=== PATIENT | male | born 1940 | race African-American/Black ===

== ENCOUNTER 2018-12-22 08:15 | Outpatient (CLI) | payer MEDICARE ==
[2018-12-22] MEDS ORDERED: XYLOCAINE TOPICAL 4% TP ONE (09:00)
== END 2018-12-22 08:16 | disposition home or self-care (01) ==
LOC: WOUND 08:15
PROVIDERS: ATTEND Surgery
DX: S61.412A Laceration without foreign body of left hand, initial encounter (principal); E11.22 Type 2 diabetes mellitus with diabetic chronic kidney disease; I12.9 Hypertensive chronic kidney disease with stage 1 through stage 4 chronic kidney disease, or unspecified chronic kidney disease; N18.9 Chronic kidney disease, unspecified; E11.42 Type 2 diabetes mellitus with diabetic polyneuropathy; K21.9 Gastro-esophageal reflux disease without esophagitis; E78.00 Pure hypercholesterolemia, unspecified; E78.5 Hyperlipidemia, unspecified; M10.9 Gout, unspecified; Z87.891 Personal history of nicotine dependence; X58.XXXA Exposure to other specified factors, initial encounter; Y93.89 Activity, other specified; Y92.89 Other specified places as the place of occurrence of the external cause; Y99.8 Other external cause status
CPT/HCPCS: 99205; 99215; G0463

== ENCOUNTER 2018-12-27 10:31 | Outpatient (CLI) | payer MEDICARE ==
[2018-12-27] MEDS ORDERED: XYLOCAINE TOPICAL 4% TP ONE (11:00)
== END 2018-12-27 10:32 | disposition home or self-care (01) ==
LOC: WOUND 10:31
PROVIDERS: ATTEND Surgery
DX: S61.402D Unspecified open wound of left hand, subsequent encounter (principal); E11.42 Type 2 diabetes mellitus with diabetic polyneuropathy; K21.9 Gastro-esophageal reflux disease without esophagitis; E78.00 Pure hypercholesterolemia, unspecified; E78.5 Hyperlipidemia, unspecified; I12.9 Hypertensive chronic kidney disease with stage 1 through stage 4 chronic kidney disease, or unspecified chronic kidney disease; N18.9 Chronic kidney disease, unspecified; M10.9 Gout, unspecified; Z87.891 Personal history of nicotine dependence; X58.XXXD Exposure to other specified factors, subsequent encounter

== ENCOUNTER 2019-01-03 09:14 | Outpatient (CLI) | payer MEDICARE | END 2019-01-03 09:15 | disposition home or self-care (01) | LOC: WOUND 09:14 | PROVIDERS: ATTEND Surgery | DX: S61.402D Unspecified open wound of left hand, subsequent encounter (principal); E11.42 Type 2 diabetes mellitus with diabetic polyneuropathy; K21.9 Gastro-esophageal reflux disease without esophagitis; E78.00 Pure hypercholesterolemia, unspecified; E78.5 Hyperlipidemia, unspecified; I12.9 Hypertensive chronic kidney disease with stage 1 through stage 4 chronic kidney disease, or unspecified chronic kidney disease; N18.9 Chronic kidney disease, unspecified; M10.9 Gout, unspecified; Z87.891 Personal history of nicotine dependence; X58.XXXD Exposure to other specified factors, subsequent encounter | CPT/HCPCS: 99213; G0463 ==

== ENCOUNTER 2020-02-26 13:48 | Emergency (ER) | payer MEDICARE, OTHER ==
[2020-02-26 13:57] VITALS: BP 120/52
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
[2020-02-26 15:42] LABS: Basophils # (Auto) 0.1 K/mm3 (0.0-0.1); Eosinophils # (Auto) 0.5 K/mm3 (0.0-0.4); Eosinophils % (Auto) 6.4 % (0.0-4.3); Hematocrit 44.4 % (35.5-45.6); Hemoglobin 14.8 gm/dl (11.8-15.2); Lymphocytes # (Auto) 2.4 K/mm3 (1.2-5.4); Lymphocytes % (Auto) 27.7 % (13.4-35.0); Mean Corpuscular HGB Conc 33 % (32-34); Mean Corpuscular Volume 96 fl (84-94); Monocytes # (Auto) 0.6 K/mm3 (0.0-0.8); Monocytes % (Auto) 6.5 % (0.0-7.3); Platelet Count 219 K/mm3 (140-440); Red Blood Count 4.61 M/mm3 (3.65-5.03); Red Cell Distribution Width 13.1 % (13.2-15.2)
[2020-02-26 15:51] LABS: INR 0.89 (0.87-1.13)
[2020-02-26 15:52] LABS: Partial Thromboplastin Time 24.3 Sec. (24.2-36.6)
[2020-02-26 16:05] LABS: Albumin 4.3 g/dL (3.9-5); Calcium 9.2 mg/dL (8.4-10.2)
[2020-02-26] MEDS ORDERED: SODIUM CHLORIDE 0.9% 1000 ML 1,000 ML IV ONE ×2 (19:48→19:59)
[2020-02-26] MEDS ORDERED: ALBUTEROL 2.5 MG/3 ML NEBU IH ONE (19:58)
[2020-02-26] MEDS ORDERED: INSULIN REGULAR, HUMAN 100 UNIT/ML 3ML VIAL IV ONE ×2 (20:00→21:59)
[2020-02-26] MEDS ORDERED: DEXTROSE 50% IN WATER (25GM) 50 ML SYRINGE IV ONE (20:00)
[2020-02-26] MEDS ORDERED: DEXTROSE 50% IN WATER (25GM) 50 ML VIAL IV ONE (20:00)
[2020-02-26] MEDS ORDERED: MORPHINE 4 MG/1 ML INJ IV ONE (20:56)
[2020-02-26] MEDS ORDERED: ONDANSETRON 4 MG/2 ML INJ IV ONE (20:56)
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
[2020-02-26] MEDS ORDERED: INSULIN REGULAR, HUMAN 100 UNITS/1 ML IV ONE (21:59)
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
[2020-02-26] MEDS ORDERED: SODIUM POLYSTYRENE 15 GM/60 ML ORAL LIQD PO ONE (22:36)
[2020-02-26] MEDS ORDERED: FUROSEMIDE 20 MG/2 ML INJ IV ONE (22:36)
[2020-02-27 02:37] LABS: Calcium 8.5 mg/dL (8.4-10.2)
[2020-02-27] MEDS ORDERED: INSULIN REGULAR, HUMAN 100 UNIT/ML 3ML VIAL IV ONE (21:54)
== END 2020-02-27 03:05 | disposition home or self-care (01) ==
LOC: ED 13:48
DX: S20.219A Contusion of unspecified front wall of thorax, initial encounter (principal); I10 Essential (primary) hypertension; E11.9 Type 2 diabetes mellitus without complications; Z79.899 Other long term (current) drug therapy; Z88.6 Allergy status to analgesic agent; N28.9 Disorder of kidney and ureter, unspecified; E87.5 Hyperkalemia; E86.0 Dehydration; X58.XXXA Exposure to other specified factors, initial encounter; Y93.89 Activity, other specified; Y92.89 Other specified places as the place of occurrence of the external cause; Y99.8 Other external cause status
CPT/HCPCS: 36415; 71260; 74177; 80048; 80053; 85025; 85610; 85730; 94644; 96361; 96374; 96375; 99284; J1940; J2270; J2405; J7030; Q9967; J1815

== ENCOUNTER 2020-06-25 08:36 | Outpatient (CLI) | payer MEDICARE ==
--- NOTE | 2020-06-25 10:19 | Cat Scan Report ---
CT ABDOMEN AND PELVIS WITHOUT CONTRAST HISTORY: MALIGNANT NEOPLASM OF PROSTATE COMPARISON: 02/26/2020 TECHNIQUE: Axial CT images were obtained through the abdomen and pelvis without IV contrast. Sagittal and coronal reformatted images. All CT scans at this location are performed using CT dose reduction for ALARA by means of automated exposure control. FINDINGS: CT ABDOMEN: Lung Bases: Clear. Liver: No significant abnormality. Biliary: The gallbladder appears partially contracted with stones and sludge. Spleen: No significant abnormality. Unenlarged. 1.4 cm cyst in the inferior spleen is unchanged. Pancreas: No significant abnormality. Adrenals: No significant abnormality. Kidneys: There are a few punctate calyceal stones in both kidneys. No ureteral stones or hydronephros is. No focal renal lesion. Lymphatics: There is an 8 mm aortocaval lymph node on image 67, series 2. This is not pathologically enlarged by CT standards although it has increased in size from 5 mm on the previous exam. No other s uspicious lymph nodes are detected. Vasculature: Mild to moderate diffuse aortic and iliac calcifications. No aneurysm. Bowel/Peritoneum: No significant abnormality. No free air. No free fluid. Normal appendix. CT PELVIS: : The prostate gland remains mildly enlarged. The bladder is unremarkable. Osseous Structures: Mild osteopenia. Mild thoracolumbar spondylosis. No suspicious bony lesion is det ected. Additional Findings: None IMPRESSION: Mildly enlarged prostate gland. There is a questionable retroperitoneal lymph node in the aortocaval chain as described. Although this lymph node is not pathologically enlarged by CT measurement standar ds it has increased in size since the CT performed 02/26/2020. Early retroperitoneal lymph node involve ment cannot be excluded. No bony lesions are detected. Cholelithiasis. Punctate bilateral renal stones. Signer Name: Jamie Butler Jr, MD Signed: 06/25/2020 10:14 AM Workstation Name: [id number]
--- NOTE | 2020-06-25 15:17 | Nuclear Medicine Report ---
CLINICAL DATA: MALIGNANT NEOPLASM OF PROSTATE TECHNICAL DATA: Following intravenous injection of 26.3 millicuries of 99m technetium MDP, three-hour delayed anterio r and posterior whole body skeletal phase images were obtained. FINDINGS: CT scan abdomen and pelvis compared to day stay There is normal distribution of the radiopharmaceutical throughout the skeleton. There is no evidence of focal increased or decreased activity. There is normal renal and bladder activity. Increased uptake of the radiopharmaceutical identified in both shoulders consistent with degenerative changes. Also noted focal area of increased radiopharmaceutical overlying the right elbow questionab le injection site IMPRESSION: No convincing evidence of metastatic disease. Please see comments Signer Name: Alexandre Recinos MD Signed: 06/25/2020 3:12 PM Workstation Name: [id number]
== END 2020-06-25 08:37 | disposition home or self-care (01) ==
LOC: NM 08:36
PROVIDERS: ATTEND Urology
DX: C61 Malignant neoplasm of prostate (principal); N40.0 Benign prostatic hyperplasia without lower urinary tract symptoms; N20.0 Calculus of kidney; K80.20 Calculus of gallbladder without cholecystitis without obstruction; D73.4 Cyst of spleen; K82.8 Other specified diseases of gallbladder; I70.0 Atherosclerosis of aorta; I70.8 Atherosclerosis of other arteries; M85.80 Other specified disorders of bone density and structure, unspecified site; M47.815 Spondylosis without myelopathy or radiculopathy, thoracolumbar region
CPT/HCPCS: 74176; 78306; A9503

== ENCOUNTER 2020-11-27 10:41 | Inpatient (IN) | payer MEDICARE ==
[2020-11-27] MEDS ORDERED: SODIUM CHLORIDE 0.9% 1000 ML 1,000 ML IV ONE (11:50)
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
[2020-11-27 12:00] LABS: Bilirubin,Urine NEG (Negative); Blood,Urine SM (Negative); Color,Urine Straw (Yellow); Mucus,Urine FEW /HPF; Protein,Urine <15 mg/dL mg/dL (Negative); Urobilinogen,Urine < 2.0 mg/dL (<2.0); WBC,Urine < 1.0 /HPF (0.0-6.0)
--- NOTE | 2020-11-27 12:32 | XRay Report ---
CHEST 1 VIEW 11/27/2020 11:24 AM INDICATION / CLINICAL INFORMATION: weakness. COMPARISON: None available. FINDINGS: SUPPORT DEVICES: None. HEART / MEDIASTINUM: No significant abnormality. LUNGS / PLEURA: No significant pulmonary or pleural abnormality. No pneumothorax. ADDITIONAL FINDINGS: No significant additional findings. IMPRESSION: 1. No acute findings. Signer Name: Lexa Ontiveros MD Signed: 11/27/2020 12:28 PM Workstation Name: [id number]
[2020-11-27 13:59] LABS: Basophils % (Auto) 0.4 % (0.0-1.8); Eosinophils # (Auto) 0.1 K/mm3 (0.0-0.4); Eosinophils % (Auto) 0.7 % (0.0-4.3); Lymphocytes # (Auto) 1.3 K/mm3 (1.2-5.4); Lymphocytes % (Auto) 11.1 % (13.4-35.0); Mean Corpuscular HGB Conc 32 % (32-34); Mean Corpuscular Volume 100 fl (84-94); Monocytes # (Auto) 0.5 K/mm3 (0.0-0.8); Monocytes % (Auto) 4.1 % (0.0-7.3); Platelet Count 216 K/mm3 (140-440); Red Cell Distribution Width 14.2 % (13.2-15.2)
[2020-11-27 14:00] LABS: Hematocrit 16.1 % (35.5-45.6); Hemoglobin 5.2 gm/dl (11.8-15.2)
[2020-11-27 14:17] LABS: INR 1.19 (0.87-1.13); Partial Thromboplastin Time 28.6 Sec. (24.2-36.6)
[2020-11-27] MEDS ORDERED: SODIUM CHLORIDE 0.9% 500 ML 500 ML IV ONE (14:44)
[2020-11-27 15:16] LABS: Alanine Aminotransferase 15 units/L (7-56); Albumin 2.7 g/dL (3.9-5); BUN/Creatinine Ratio 58; Blood Urea Nitrogen 93 mg/dL (9-20); Hemolysis Index 7
[2020-11-27 15:21] LABS: Bilirubin,Direct < 0.2 mg/dL (0-0.2)
[2020-11-27] MEDS ORDERED: INSULIN REGULAR, HUMAN 100 UNITS/1 ML IV ONE (15:27)
[2020-11-27] MEDS ORDERED: DEXTROSE 50% IN WATER (25GM) 50 ML SYRINGE IV ONE (15:28)
[2020-11-27] MEDS ORDERED: CALCIUM CHLORIDE 1,000 MG/10 ML SYRINGE IV ONE (15:28)
[2020-11-27] MEDS ORDERED: SODIUM POLYSTYRENE 15 GM/60 ML ORAL LIQD PO ONE (15:28)
[2020-11-27] MEDS ORDERED: ALBUTEROL 2.5 MG/3 ML NEBU IH ONE (15:28)
--- NOTE | 2020-11-27 16:47 | Consultation ---
History of Present Illness - Reason for Consult Consult date: 11/27/20 - History of Present Illness This is a 80 year old male who presented to the E.R via EMS for evaluation of weakness, poor appetite and frequent falls. On evaluation patient was noted to be with Melena, Hypotensive, Anemic with HGB of 5.2 and Hyperkalemic with a potassium level of 6.3. Patient has history of Hypertension, DM and CKD stage 3. States he sees a global professional in [place]. We are being consulted for manageme nt of this patient's ARF on CKD and Hyperkalemia. Past History Past Medical History: anemia, diabetes, hypertension, renal failure Past Surgical History: No surgical history Social history: no significant social history Family history: no significant family history Medications and Allergies Allergies Allergy/AdvReac Type Severity Reaction Status Date / Time ibuprofen [From Advil] Allergy Mild Dizziness Verified 12/22/18 08:48 Home Medications Medication Instructions Recorded Confirmed Last Taken Type Aspirin [Adult Aspirin] 81 mg PO DAILY 10/17/19 10/23/19 10/17/19 09:00 History Insulin Detemir [Levemir VIAL] 0 unit SQ QHS 10/17/19 10/23/19 10/22/19 21:00 History Lisinopril [Zestril] 5 mg PO DAILY 10/17/19 10/23/19 10/22/19 18:00 History Lispro Insulin [HumaLOG] 0 unit SQ TID 10/17/19 10/23/19 10/22/19 18:00 History Lovastatin [Altoprev] 20 mg PO DAILY 10/17/19 10/23/19 10/22/19 18:00 History metFORMIN [Glucophage] 500 mg PO QDAY 10/17/19 10/23/19 10/22/19 09:00 History Acetaminophen/Codeine [Tylenol 1 tab PO Q6H PRN #15 tab 02/27/20 Unknown Rx /Codeine # 3 tab] Active Meds: Active Medications Pantoprazole Sodium 80 mg/ (Sodium Chloride) 100 mls @ 10 mls/hr IV DIRECT JANE Review of Systems Constitutional: fatigue, weakness, poor appetite, no weight loss, no weight gain, no fever, no chills Ears, nose, mouth and throat: no ear pain, no ear discharge, no tinnitis, no decreased hearing, no nose pain, no nasal congestion Cardiovascular: no chest pain, no orthopnea, no palpitations, no rapid/irregular heart beat, no edema, no lightheadedness, no shortness of breath Respiratory: no cough with sputum, no excessive sputum, no hemoptysis, no shortness of breath, no dyspnea on exertion Gastrointestinal: melena, no abdominal pain, no nausea, no vomiting, no diarrhea Genitourinary Male: no hematuria, no flank pain, no discharge, no urinary frequency Rectal: no pain, no incontinence, no bleeding Musculoskeletal: neck pain, no arm numbness/tingling, no shooting leg pain, no leg numbness/tingling, no redness of joints Integumentary: no rash, no pruritis, no redness, no sores, no wounds, no jaundice Neurological: weakness, no paralysis, no parathesias, no numbness, no tingling, no seizures Psychiatric: no anxiety, no memory loss, no change in sleep habits, no sleep disturbances, no insomnia, no hypersomnia, no change in appetite Endocrine: no cold intolerance, no heat intolerance, no polyphagia, no excessive thirst, no polydipsia Exam - Vital Signs Vital signs: Vital Signs Temp Pulse Resp BP Pulse Ox 97.7 F 102 H 23 119/39 95 11/27/20 10:43 11/27/20 10:43 11/27/20 10:43 11/27/20 10:43 11/27/20 10:43 - General Appearance General appearance: well-developed, appears stated age EENT: ATNC, PERRL, hearing intact, vision intact Neck: Present: neck supple, trachea midline Respiratory: Decreased Breath Sounds Heart: S1S2 Gastrointestinal: Present: normoactive bowel sounds Integumentary: warm and dry Neurologic: other (Awake and alert) Musculoskeletal: Present: other (No edema) Results - Lab Results 11/27/20 13:06 11/27/20 13:06 Most recent lab results Calcium 8.0 mg/dL (8.4-10.2) L 11/27/20 13:06 Assessment and Plan Assessment: (Principal Problem) GI Bleed Acute Renal Failure on CKD Anemia Hyperkalemia Hypotension Diabetes Mellitus Acidosis Plan: -Renal labs reviewed. Serum Creatinine 1.6. Baseline 1.4-1.9 -Obtain renal US -Obtain urine lytes -Hyperkalemia- received Kayexlate and anti-potassium coctail -Correction of glucose levels to help correct Acidosis -Monitor BMP daily and as needed -Anemia-receiving PRBC transfusions -CXR-No acute findings -NS@75 ml/hr -Renally dose medications -Obtain daily weights -Strict I/O's daily -Continue to monitor
--- NOTE | 2020-11-27 16:54 | Gastroenterology Consultation ---
History of Present Illness - Reason for Consult Consult date: 11/27/20 Melena Requesting physician: JOHAN ORELLANA - History of Present Illness The patient is an 80 yo male found down at home during a welfare check. He was brought to the ER with a glucose of >350 and hct of 14 (baseline 42 several months ago). He was initially nearly obtunded, but can now verbalize after fluid resuscitation. He denies abdominal pain, or N/V (and nurse has not witnessed). He has had melena in the ER. He is on daily ASA, but unclear if on other NSAIDs (non listed). He does have a CT in June that shows a retroperitoneal LN, but no other significant findings. He is not on a PPI per old med lists. Past History Past Medical History: cancer (Prostate CA), diabetes, hypertension, hyperlipidemia Past Surgical History: Other (Prostate Bx) Social history: Lives alone. denies: smoking, alcohol abuse Family history: no significant family history Medications and Allergies Allergies Allergy/AdvReac Type Severity Reaction Status Date / Time ibuprofen [From Advil] Allergy Mild Dizziness Verified 12/22/18 08:48 Home Medications Medication Instructions Recorded Confirmed Last Taken Type Aspirin [Adult Aspirin] 81 mg PO DAILY 10/17/19 10/23/19 10/17/19 09:00 History Insulin Detemir [Levemir VIAL] 0 unit SQ QHS 10/17/19 10/23/19 10/22/19 21:00 History Lisinopril [Zestril] 5 mg PO DAILY 10/17/19 10/23/19 10/22/19 18:00 History Lispro Insulin [HumaLOG] 0 unit SQ TID 10/17/19 10/23/19 10/22/19 18:00 History Lovastatin [Altoprev] 20 mg PO DAILY 10/17/19 10/23/19 10/22/19 18:00 History metFORMIN [Glucophage] 500 mg PO QDAY 10/17/19 10/23/19 10/22/19 09:00 History Acetaminophen/Codeine [Tylenol 1 tab PO Q6H PRN #15 tab 02/27/20 Unknown Rx /Codeine # 3 tab] Active Meds: Active Medications Pantoprazole Sodium 80 mg/ (Sodium Chloride) 100 mls @ 10 mls/hr IV DIRECT JANE I HAVE REVIEWED/RECONCILED MEDICATIONS Review of Systems - Review of Systems All systems: negative (as noted in the HPI.) Exam - Constitutional Vital Signs: Temp Pulse Resp BP Pulse Ox 98.4 F 99 H 17 99/47 98 11/27/20 15:40 11/27/20 15:40 11/27/20 15:40 11/27/20 15:40 11/27/20 15:40 General appearance: mild distress - EENT Eyes: PERRL, EOM intact ENT: hearing intact, clear oral mucosa - Neck Neck: supple, normal ROM - Respiratory Respiratory effort: normal Respiratory: bilateral: CTA - Cardiovascular Rhythm: regular Heart Sounds: Present: S1 & S2 Extremities: no ischemia, No edema - Gastrointestinal General gastrointestinal: Present: soft, non-tender, non-distended - Integumentary Integumentary: Present: clear, warm, dry, pale - Neurologic Neurological: oriented to person, oriented to place - Labs CBC & Chem 7: 11/27/20 13:06 11/27/20 13:06 Lab Results: Laboratory Results - last 24 hr 11/27/20 11/27/20 11/27/20 10:50 11:52 13:06 WBC 11.7 H RBC 1.60 L Hgb 5.2 L* Hct 16.1 L* MCV 100 H MCH 32 MCHC 32 RDW 14.2 Plt Count 216 Lymph % (Auto) 11.1 L [place] % (Auto) 4.1 Eos % (Auto) 0.7 Baso % (Auto) 0.4 Lymph # (Auto) 1.3 [place] # (Auto) 0.5 Eos # (Auto) 0.1 Baso # (Auto) 0.0 Seg Neutrophils % 83.7 H Seg Neutrophils # 9.8 H PT INR APTT Sodium Potassium Chloride Carbon Dioxide Anion Gap BUN Creatinine Estimated GFR BUN/Creatinine Ratio Glucose POC Glucose 345 H Ketones Quantitative Calcium Total Bilirubin Direct Bilirubin Indirect Bilirubin AST ALT Alkaline Phosphatase Troponin T Total Protein Albumin Albumin/Globulin Ratio Urine Color Straw Urine Turbidity Clear Urine pH 5.0 Ur Specific [place] 1.011 Urine Protein <15 mg/dl Urine Glucose (UA) >=500 Urine Ketones 20 Urine Blood Sm Urine Nitrite Neg Urine Bilirubin Neg Urine Urobilinogen < 2.0 Ur Leukocyte Esterase Neg Urine WBC (Auto) < 1.0 Urine RBC (Auto) 1.0 U Epithel Cells (Auto) < 1.0 Urine Mucus Few Blood Type Antibody Screen Crossmatch 11/27/20 11/27/20 11/27/20 13:06 13:06 13:10 WBC RBC Hgb Hct MCV MCH MCHC RDW Plt Count Lymph % (Auto) [place] % (Auto) Eos % (Auto) Baso % (Auto) Lymph # (Auto) [place] # (Auto) Eos # (Auto) Baso # (Auto) Seg Neutrophils % Seg Neutrophils # PT INR APTT Sodium 133 L Potassium 6.3 H* Chloride 104.5 Carbon Dioxide 11 L Anion Gap 24 BUN 93 H Creatinine 1.6 H Estimated GFR 42 BUN/Creatinine Ratio 58 Glucose 392 H POC Glucose Ketones Quantitative Negative Calcium 8.0 L Total Bilirubin 0.20 Direct Bilirubin < 0.2 Indirect Bilirubin 0.0 AST 15 ALT 15 Alkaline Phosphatase 42 Troponin T < 0.010 Total Protein 4.9 L Albumin 2.7 L Albumin/Globulin Ratio 1.2 Urine Color Urine Turbidity Urine pH Ur Specific [place] Urine Protein Urine Glucose (UA) Urine Ketones Urine Blood Urine Nitrite Urine Bilirubin Urine Urobilinogen Ur Leukocyte Esterase Urine WBC (Auto) Urine RBC (Auto) U Epithel Cells (Auto) Urine Mucus Blood Type B POSITIVE Antibody Screen Negative Crossmatch See Detail 11/27/20 13:47 WBC RBC Hgb Hct MCV MCH MCHC RDW Plt Count Lymph % (Auto) [place] % (Auto) Eos % (Auto) Baso % (Auto) Lymph # (Auto) [place] # (Auto) Eos # (Auto) Baso # (Auto) Seg Neutrophils % Seg Neutrophils # PT 15.1 H INR 1.19 H APTT 28.6 Sodium Potassium Chloride Carbon Dioxide Anion Gap BUN Creatinine Estimated GFR BUN/Creatinine Ratio Glucose POC Glucose Ketones Quantitative Calcium Total Bilirubin Direct Bilirubin Indirect Bilirubin AST ALT Alkaline Phosphatase Troponin T Total Protein Albumin Albumin/Globulin Ratio Urine Color Urine Turbidity Urine pH Ur Specific [place] Urine Protein Urine Glucose (UA) Urine Ketones Urine Blood Urine Nitrite Urine Bilirubin Urine Urobilinogen Ur Leukocyte Esterase Urine WBC (Auto) Urine RBC (Auto) U Epithel Cells (Auto) Urine Mucus Blood Type Antibody Screen Crossmatch Assessment and Plan 1. Melena - Suspect UGI bleed; based on labs/prior CT, unlikely to be varices - More likely dx is PUD or tumor - Will start protonix gtt - Transfuse 4 units (+/- depending on clinical response) - NPO status - Correct sugar/HERB with IV fluids/insulin - Upper endoscopy timing based on clinical stability
[2020-11-27] MEDS ORDERED: SODIUM CHLORIDE 0.9% 1000 ML 1,000 ML IV SCH (17:15)
[2020-11-27] MEDS: PANTOPRAZOLE 80 MG in SODIUM CHLORIDE 0.9% 100 ML IV SCH (19:33)
--- NOTE | 2020-11-27 19:33 | Cat Scan Report ---
CT CERVICAL SPINE WITHOUT CONTRAST INDICATION / CLINICAL INFORMATION: neck pain. TECHNIQUE: Axial CT images were obtained through the cervical spine. Sagittal and coronal reformatted images wer e produced. All CT scans at this location are performed using CT dose reduction for ALARA by means of automated exposure control. COMPARISON: None available. FINDINGS: ALIGNMENT: Loss of the normal cervical lordosis is noted. No additional abnormalities of alignment ar e identified. VERTEBRAE: No indication of fracture or bone destruction. DISC SPACES: Disc height is fairly well-maintained throughout. DEGENERATIVE CHANGES: Osteoarthritic changes are seen at the atlantoaxial junction between the anteri or arch of C1 and the odontoid process. Anterior osteophyte formation is noted at the C4-5 and C5-6 l evels. Facet arthritic changes are observed at the C3-4 and C4-5 levels bilaterally. Uncovertebral ar thritic changes are seen in the lower cervical region most pronounced at C5-6 and C6-7 levels. These degenerative changes contribute to multifocal neuroforaminal stenosis at the central spinal canal álvaro ears to be adequate in size. CRANIOCERVICAL JUNCTION:No significant abnormality. SPINAL CANAL: Central spinal canal is adequately maintained throughout. PARASPINAL SOFT TISSUES: No significant abnormality. LUNG APICES: No significant abnormality of visualized lungs. IMPRESSION: 1. Widespread cervical spondylosis with multifocal neuroforaminal narrowing. Signer Name: Az Ac MD Signed: 11/27/2020 7:28 PM Workstation Name: [id number]
--- NOTE | 2020-11-27 19:35 | Cat Scan Report ---
CT HEAD WITHOUT CONTRAST INDICATION / CLINICAL INFORMATION: dizziness. TECHNIQUE: All CT scans at this location are performed using CT dose reduction for ALARA by means of automated e xposure control. COMPARISON: None available. FINDINGS: HEMORRHAGE: No evidence of intracranial hemorrhage or extra-axial fluid collection. EXTRA-AXIAL SPACES: Cortical sulci and sylvian fissures are enlarged reflecting a degree of parenchym al volume loss which is within normal limits for the patient's age of 80 years. Basilar cisterns have an unremarkable appearance. VENTRICULAR SYSTEM: The third and lateral ventricles are enlarged reflecting presence of age related parenchymal volume loss. CEREBRAL PARENCHYMA: Periventricular and deep white matter lucency is observed. This is probably seco ndary to microvascular ischemic change. There is no indication of recent infarction. No areas of ence phalomalacia are identified. MIDLINE SHIFT OR HERNIATION: There is no mass effect. CEREBELLUM / BRAINSTEM: Brainstem has an unremarkable appearance. Age related cerebellar atrophy is n oted. MIDLINE STRUCTURES:Pituitary gland has an unremarkable appearance. No abnormalities are seen in the p ineal region. INTRACRANIAL VESSELS:Calcified atherosclerotic plaque is present along the course of the cavernous se gments of both internal carotid arteries. ORBITS: Status post bilateral cataract surgery. No additional abnormality. SOFT TISSUES of HEAD: No significant abnormality. CALVARIUM: Evaluation of bone windows reveals no abnormalities. PARANASAL SINUSES / MASTOID AIR CELLS: Subtotal opacification of the right maxillary sinus is noted. There is thickening of the power of the right maxillary sinus. These findings indicate a diagnosis of chronic sinusitis. Paranasal sinuses otherwise appear clear as do the mastoid air cells. ADDITIONAL FINDINGS: None. IMPRESSION: 1. Age-related involutional changes of atrophy and microvascular ischemic change. 2. No acute intracranial abnormality. 3. Chronic right maxillary sinusitis. Signer Name: Az Ac MD Signed: 11/27/2020 7:31 PM Workstation Name: [id number]
[2020-11-27 21:25] LABS: Creatinine,Urine 21.7 mg/dL (0.1-20.0); Protein/Creatinine Ratio,Urine 0.78
[2020-11-27] MEDS ORDERED: ONDANSETRON 4 MG/2 ML INJ IV PRN (22:41)
[2020-11-27] MEDS ORDERED: ACETAMINOPHEN 325 MG TAB PO PRN (22:41)
[2020-11-27] MEDS ORDERED: MORPHINE 2 MG/1 ML INJ IV PRN (22:41)
[2020-11-27] MEDS ORDERED: METOCLOPRAMIDE 10 MG/2 ML INJ IV PRN (22:41)
[2020-11-27] MEDS ORDERED: PROMETHAZINE 25 MG RECT SUPP PR PRN (22:41)
--- NOTE | 2020-11-27 22:41 | History and Physical Report ---
History of Present Illness Date of examination: 11/27/20 Date of admission: 11/27/20 15:46 Chief complaint: Black tarry stools and severe weakness for 3 days History of present illness: 61-year-old male with history of insulin-dependent diabetes, hypertension, prostate cancer and hyperlipidemia was called in for a welfare check by neighbor. When the EMS arrived her house was in an back condition and patient was hypotensive tachycardic and unable to walk. Accu-Cheks are in range of 500. Patient says that he had some black tarry stools for the last 3 days. Feels very weak and unable to walk. No fever. Compliance with medications not known. Lives alone. -- - Past Medical History Hx Hypertension: Yes (took antihypertensive last night) Hx Diabetes: Ye Hx Renal Disease: Yes (hyperkalemia (appears chronic based on outpatient labs in chart)) - Social History Smoking Status: Former Smoker surgical history and family history not available - Medications Home Medications: Home Medications Medication Instructions Recorded Confirmed Last Taken Type Aspirin [Adult Aspirin] 81 mg PO DAILY 10/17/19 10/23/19 10/17/19 09:00 History Insulin Detemir [Levemir VIAL] 0 unit SQ QHS 10/17/19 10/23/19 10/22/19 21:00 History Lisinopril [Zestril] 5 mg PO DAILY 10/17/19 10/23/19 10/22/19 18:00 History Lispro Insulin [HumaLOG] 0 unit SQ TID 10/17/19 10/23/19 10/22/19 18:00 History Lovastatin [Altoprev] 20 mg PO DAILY 10/17/19 10/23/19 10/22/19 18:00 History metFORMIN [Glucophage] 500 mg PO QDAY 10/17/19 10/23/19 10/22/19 09:00 History Acetaminophen/Codeine [Tylenol 1 tab PO Q6H PRN #15 tab 02/27/20 Unknown Rx /Codeine # 3 tab] Review of Systems ROS: Stated complaint: WEAKN,HIGH BLOOD SUGAR Other details as noted in HPI Comment: All other systems reviewed and negative Constitutional: denies: chills, fever Respiratory: denies: shortness of breath Cardiovascular: denies: chest pain Gastrointestinal: melena. denies: abdominal pain, vomiting Musculoskeletal: other (Patient reports neck pain) Neurological: other (She reports dizziness) Past History Past Medical History: anemia, diabetes, hypertension, renal failure Past Surgical History: No surgical history Social history: no significant social history Family history: no significant family history Medications and Allergies Allergies Allergy/AdvReac Type Severity Reaction Status Date / Time ibuprofen [From Advil] Allergy Mild Dizziness Verified 12/22/18 08:48 Home Medications Medication Instructions Recorded Confirmed Last Taken Type Aspirin [Adult Aspirin] 81 mg PO DAILY 10/17/19 10/23/19 10/17/19 09:00 History Insulin Detemir [Levemir VIAL] 0 unit SQ QHS 10/17/19 10/23/19 10/22/19 21:00 History Lisinopril [Zestril] 5 mg PO DAILY 10/17/19 10/23/19 10/22/19 18:00 History Lispro Insulin [HumaLOG] 0 unit SQ TID 10/17/19 10/23/19 10/22/19 18:00 History Lovastatin [Altoprev] 20 mg PO DAILY 10/17/19 10/23/19 10/22/19 18:00 History metFORMIN [Glucophage] 500 mg PO QDAY 10/17/19 10/23/19 10/22/19 09:00 History Acetaminophen/Codeine [Tylenol 1 tab PO Q6H PRN #15 tab 02/27/20 Unknown Rx /Codeine # 3 tab] Active Meds: Active Medications Pantoprazole Sodium 80 mg/ (Sodium Chloride) 100 mls @ 10 mls/hr IV DIRECT JANE Last Admin: 11/27/20 19:33 Dose: 8 mg/hr, 10 mls/hr Documented by: Sodium Chloride (Nacl 0.9% 1000 Ml) 1,000 mls @ 75 mls/hr IV DIRECT JANE Last Admin: 11/27/20 19:34 Dose: 75 mls/hr Documented by: Exam - Constitutional Vitals: Temp Pulse Resp BP Pulse Ox 97.9 F 110 H 16 107/57 100 11/27/20 20:00 11/27/20 22:01 11/27/20 22:01 11/27/20 22:00 11/27/20 22:01 General appearance: Present: no acute distress, well-nourished - EENT Eyes: Present: PERRL ENT: hearing intact, clear oral mucosa, other - Neck Neck: Present: supple, normal ROM - Respiratory Respiratory effort: normal Respiratory: bilateral: CTA - Cardiovascular Rhythm: regular (110) Heart Sounds: Present: S1 & S2. Absent: rub, click - Extremities Extremities: pulses symmetrical, No edema Peripheral Pulses: within normal limits - Abdominal General gastrointestinal: Present: soft, non-tender, non-distended, normal bowel sounds Male genitourinary: Present: normal - Rectal Rectal Exam: stool dark - Integumentary Integumentary: Present: clear, warm, dry - Musculoskeletal Musculoskeletal: gait normal, strength equal bilaterally - Psychiatric Psychiatric: appropriate mood/affect, intact judgment & insight - Neurologic Neurologic: CNII-XII intact, moves all extremities HEART Score - HEART Score History: Moderately suspicious Age: > 65 Risk factors: 1-2 risk factors Troponin: Troponin T < 0.010 ng/mL (0.00-0.029) 11/27/20 13:06 - Critical Actions Critical Actions: 4-6 pts:12-16.6% risk of adverse cardiac event. Should be admitted Results - Labs CBC & Chem 7: 11/27/20 22:51 11/27/20 22:34 Labs: Laboratory Last Values WBC 11.7 K/mm3 (4.5-11.0) H 11/27/20 13:06 RBC 1.60 M/mm3 (3.65-5.03) L 11/27/20 13:06 Hgb 5.2 gm/dl (11.8-15.2) L* 11/27/20 13:06 Hct 16.1 % (35.5-45.6) L* 11/27/20 13:06 MCV 100 fl (84-94) H 11/27/20 13:06 MCH 32 pg (28-32) 11/27/20 13:06 MCHC 32 % (32-34) 11/27/20 13:06 RDW 14.2 % (13.2-15.2) 11/27/20 13:06 Plt Count 216 K/mm3 (140-440) 11/27/20 13:06 Lymph % (Auto) 11.1 % (13.4-35.0) L 11/27/20 13:06 [place] % (Auto) 4.1 % (0.0-7.3) 11/27/20 13:06 Eos % (Auto) 0.7 % (0.0-4.3) 11/27/20 13:06 Baso % (Auto) 0.4 % (0.0-1.8) 11/27/20 13:06 Lymph # (Auto) 1.3 K/mm3 (1.2-5.4) 11/27/20 13:06 [place] # (Auto) 0.5 K/mm3 (0.0-0.8) 11/27/20 13:06 Eos # (Auto) 0.1 K/mm3 (0.0-0.4) 11/27/20 13:06 Baso # (Auto) 0.0 K/mm3 (0.0-0.1) 11/27/20 13:06 Seg Neutrophils % 83.7 % (40.0-70.0) H 11/27/20 13:06 Seg Neutrophils # 9.8 K/mm3 (1.8-7.7) H 11/27/20 13:06 PT 15.1 Sec. (12.2-14.9) H 11/27/20 13:47 INR 1.19 (0.87-1.13) H 11/27/20 13:47 APTT 28.6 Sec. (24.2-36.6) 11/27/20 13:47 Sodium 133 mmol/L (137-145) L 11/27/20 13:06 Potassium 6.3 mmol/L (3.6-5.0) H* 11/27/20 13:06 Chloride 104.5 mmol/L (98-107) 11/27/20 13:06 Carbon Dioxide 11 mmol/L (22-30) L 11/27/20 13:06 Anion Gap 24 mmol/L 11/27/20 13:06 BUN 93 mg/dL (9-20) H 11/27/20 13:06 Creatinine 1.6 mg/dL (0.8-1.3) H 11/27/20 13:06 Estimated GFR 42 ml/min 11/27/20 13:06 BUN/Creatinine Ratio 58 % 11/27/20 13:06 Glucose 392 mg/dL (75-100) H 11/27/20 13:06 POC Glucose 368 mg/dL (70-105) H 11/27/20 20:56 Ketones Quantitative Negative (Negative) 11/27/20 13:06 Calcium 8.0 mg/dL (8.4-10.2) L 11/27/20 13:06 Total Bilirubin 0.20 mg/dL (0.1-1.2) 11/27/20 13:06 Direct Bilirubin < 0.2 mg/dL (0-0.2) 11/27/20 13:06 Indirect Bilirubin 0.0 mg/dL 11/27/20 13:06 AST 15 units/L (5-40) 11/27/20 13:06 ALT 15 units/L (7-56) 11/27/20 13:06 Alkaline Phosphatase 42 units/L (35-129) 11/27/20 13:06 Troponin T < 0.010 ng/mL (0.00-0.029) 11/27/20 13:06 Total Protein 4.9 g/dL (6.3-8.2) L 11/27/20 13:06 Albumin 2.7 g/dL (3.9-5) L 11/27/20 13:06 Albumin/Globulin Ratio 1.2 % 11/27/20 13:06 Urine Color Straw (Yellow) 11/27/20 11:52 Urine Turbidity Clear (Clear) 11/27/20 11:52 Urine pH 5.0 (5.0-7.0) 11/27/20 11:52 Ur Specific [place] 1.011 (1.003-1.030) 11/27/20 11:52 Urine Protein <15 mg/dl mg/dL (Negative) 11/27/20 11:52 Urine Glucose (UA) >=500 mg/dL (Negative) 11/27/20 11:52 Urine Ketones 20 mg/dL (Negative) 11/27/20 11:52 Urine Blood Sm (Negative) 11/27/20 11:52 Urine Nitrite Neg (Negative) 11/27/20 11:52 Urine Bilirubin Neg (Negative) 11/27/20 11:52 Urine Urobilinogen < 2.0 mg/dL (<2.0) 11/27/20 11:52 Ur Leukocyte Esterase Neg (Negative) 11/27/20 11:52 Urine WBC (Auto) < 1.0 /HPF (0.0-6.0) 11/27/20 11:52 Urine RBC (Auto) 1.0 /HPF (0.0-6.0) 11/27/20 11:52 U Epithel Cells (Auto) < 1.0 /HPF (0-13.0) 11/27/20 11:52 Urine Mucus Few /HPF 11/27/20 11:52 Urine Eosinophils None seen (None Seen) 11/27/20 20:42 Urine Creatinine 21.7 mg/dL (0.1-20.0) H 11/27/20 20:42 Protein/Creatinin Ratio 0.78 11/27/20 20:42 Urine Sodium 57 mmol/L 11/27/20 20:42 Urine Total Protein 17 mg/dL (5-11.8) H 11/27/20 20:42 Blood Type B POSITIVE 11/27/20 13:10 Antibody Screen Negative 11/27/20 13:10 Crossmatch See Detail 11/27/20 13:10 Short CBC 11/27/20 11/27/20 Range/Units 13:06 22:51 WBC 11.7 H (4.5-11.0) K/mm3 Hgb 5.2 L* 8.5 L D (11.8-15.2) gm/dl Hct 16.1 L* 24.1 L D (35.5-45.6) % Plt Count 216 (140-440) K/mm3 BMP 11/27/20 11/27/20 13:06 22:34 Sodium 133 L Potassium 6.3 H* 5.8 H Chloride 104.5 Carbon Dioxide 11 L BUN 93 H Creatinine 1.6 H Glucose 392 H Calcium 8.0 L Cardiac Enzymes 11/27/20 Range/Units 13:06 Troponin T < 0.010 (0.00-0.029) ng/mL Liver Function 11/27/20 Range/Units 13:06 Total Bilirubin 0.20 (0.1-1.2) mg/dL Direct Bilirubin < 0.2 (0-0.2) mg/dL AST 15 (5-40) units/L ALT 15 (7-56) units/L Alkaline Phosphatase 42 (35-129) units/L Albumin 2.7 L (3.9-5) g/dL Urine 11/27/20 Range/Units 11:52 Urine Color Straw (Yellow) Urine pH 5.0 (5.0-7.0) Ur Specific [place] 1.011 (1.003-1.030) Urine Protein <15 mg/dl (Negative) mg/dL Urine Glucose (UA) >=500 (Negative) mg/dL - Imaging and Cardiology EKG: report reviewed Chest x-ray: report reviewed CT Scan - head: report reviewed Imaging and Cardiology: Chest x-ray No acute findings head CT Age-related involutional changes of atrophy and microvascular ischemic change No acute intracranial abnormality Chronic right maxillary sinusitis Cervical spine CT widespread cervical spondylosis with multifocal neuro foraminal narrowness Assessment and Plan Assessment and plan: The high probability OF a clinically significant sudden or life-threatening deterioration of the cardiorespiratory system and endocrine system required my f ull and direct attention, intervention and postoperative management. The aggregate critical care time was 40 minutes. The time is in addition to time spent performing reported procedures but includes the followin: Data review and interpretation 2: Patient assessment and monitoring of vital signs 3: Documentation 4:: Medication orders and management Advance Directives: Yes (Full code) VTE prophylaxis?: Chemical Plan of care discussed with patient/family: Yes - Patient Problems (1) GI bleed Current Visit: Yes Status: Acute Plan to address problem: Possible upper GI bleed IV Protonix drip 2 units of packed red blood cells were given GI consult (2) Uncontrolled diabetes mellitus Current Visit: Yes Status: Chronic Qualifiers: Diabetes mellitus type: type 2 Plan to address problem: Frequent Accu-Cheks and high-dose insulin coverage Lantus initiated Check hemoglobin A1c (3) Hypertension Current Visit: Yes Status: Acute Qualifiers: Hypertension type: unspecified Qualified Code(s): I10 - Essential (primary) hypertension Plan to address problem: Secondary to volume loss IV fluids (4) HERB (acute kidney injury) Current Visit: Yes Status: Acute Plan to address problem: IV fluids for now and check BUN/creatinine regularly (5) Hyperlipidemia Current Visit: Yes Status: Chronic Plan to address problem: Hold statins for now (6) DVT prophylaxis Current Visit: Yes Status: Acute Plan to address problem: On SCDs and GI prophylaxis
[2020-11-27] MEDS ORDERED: CALCIUM GLUCONATE 2,000 MG in SODIUM CHLORIDE 0.9% 100 ML IV ONE (22:47)
[2020-11-27 23:04] LABS: Hematocrit 24.1 % (35.5-45.6); Hemoglobin 8.5 gm/dl (11.8-15.2)
[2020-11-28] MEDS: PANTOPRAZOLE 80 MG in SODIUM CHLORIDE 0.9% 100 ML IV SCH (04:44)
[2020-11-28] MEDS ORDERED: SODIUM CHLORIDE 0.9% 1000 ML 1,000 ML IV SCH (06:45)
[2020-11-28 07:41] LABS: Basophils % (Auto) 0.7 % (0.0-1.8); Eosinophils # (Auto) 0.3 K/mm3 (0.0-0.4); Eosinophils % (Auto) 3.8 % (0.0-4.3); Hematocrit 23.7 % (35.5-45.6); Hemoglobin 8.2 gm/dl (11.8-15.2); Lymphocytes # (Auto) 0.8 K/mm3 (1.2-5.4); Lymphocytes % (Auto) 11.7 % (13.4-35.0); Mean Corpuscular HGB Conc 35 % (32-34); Mean Corpuscular Volume 94 fl (84-94); Monocytes # (Auto) 0.5 K/mm3 (0.0-0.8); Monocytes % (Auto) 8.2 % (0.0-7.3); Platelet Count 217 K/mm3 (140-440); Red Blood Count 2.53 M/mm3 (3.65-5.03); Red Cell Distribution Width 14.7 % (13.2-15.2)
[2020-11-28 07:42] LABS: BUN/Creatinine Ratio 59; Blood Urea Nitrogen 65 mg/dL (9-20); Calcium 9.1 mg/dL (8.4-10.2); Hemolysis Index 4
[2020-11-28] MEDS ORDERED: SODIUM POLYSTYRENE 15 GM/60 ML ORAL LIQD PO ONE (07:59)
[2020-11-28] MEDS: INSULIN LISPRO 100 UNIT/ML SUB-Q SCH ×3 (08:25→18:20)
[2020-11-28] MEDS ORDERED: ONDANSETRON 4 MG/2 ML INJ ONE (09:10)
[2020-11-28] MEDS ORDERED: LIDOCAINE MPF (2%) 20 MG/1 ML VIAL 5 ML ONE (09:10)
[2020-11-28] MEDS ORDERED: fentaNYL 100 MCG/2 ML INJ ONE (09:10)
[2020-11-28] MEDS ORDERED: propofoL 200 MG/20 ML VIAL IV ONE ×2 (09:11)
[2020-11-28] MEDS ORDERED: KETAMINE/STERILE WATER 50 MG/ML SYRINGE ONE (09:11)
--- NOTE | 2020-11-28 09:49 | Anesthesia Consultation ---
Anesthesia Consult and Med Hx Date of service: 11/28/20 - Airway Anesthetic Teeth Evaluation: Dentures (Full Plates- Upper and lower) ROM Head & Neck: Adequate Mental/Hyoid Distance: Adequate Mallampati Class: Class II Intubation Access Assessment: Probably Good - Pulmonary Exam CTA: Yes - Pre-Operative Health Status ASA Pre-Surgery Classification: ASA3, ASA5, Emergency Proposed Anesthetic Plan: MAC - Pulmonary Hx Smoking: Yes (quit 25yrs) Hx Respiratory Symptoms: No Hx Sleep Apnea: No ([place] PRE SCREEN HIGH RISK) - Cardiovascular System Hx Hypertension: Yes (took antihypertensive last night) Hx Heart Attack/AMI: No Hx Percutaneous Transluminal Coronary Angioplasty (PTCA): No - Central Nervous System Hx Seizures: No CVA: No Hx Back Pain: Yes (NECK PAIN) - Gastrointestinal Hx Ulcer: No (GI bleeding) Hx Gastroesophageal Reflux Disease: No - Endocrine Hx Renal Disease: Yes (hyperkalemia (appears chronic based on outpatient labs in chart)) Hx Liver Disease: No Hx Insulin Dependent Diabetes: Yes Hx Thyroid Disease: No - Hematic Hx Anemia: No - Other Systems Hx Alcohol Use: No (Quit 25 years ago) Hx Cancer: Yes (hx leukemia 2005, Prostate Ca) Hx Obesity: No - Additional Comments Anesthesia Medical History Comments: Patient denied previous anesthesia complications
--- NOTE | 2020-11-28 09:50 | Anesthesia Day of Surgery ---
Anesthesia Day of Surgery - Day of Surgery Patient Examined: Yes Patient H&P Reviewed: Yes Patient is NPO: Yes Beta Blockers: No Cardiac Clearance: No Pulmonary Clearance: No Navdeep's Test: N/A
--- NOTE | 2020-11-28 10:20 | Post Operative Note ---
Pre-op diagnosis: Melena Post-op diagnosis: other (PUD) Findings: 1. 5mm white-based DU with surrounding duodenitis and edema 2. Antral gastritis, cold bx 3. Normal esophagus Procedure: EGD with cold bx Anesthesia: MAC Surgeon: MARCY EDGAR Estimated blood loss: minimal Pathology: list (1. Gastric Antrum) Specimen disposition: to lab Condition: stable Disposition: floor (Recs: 1. Convert protonix to BID IV. 2. Clear liquid diet, if tolerates, advance to regular. 3. Continue to hold ASA and other NSAIDs today. 4. OK to transition to floor since no severe active bleeding seen.)
[2020-11-28] MEDS ORDERED: PHENYLEPHRINE/NS 1,000 MCG/10 ML SYRINGE (OR USE) IV ONE (10:28)
--- NOTE | 2020-11-28 10:32 | Operative Report ---
DATE OF SURGERY: 11/28/2020 PROCEDURE PERFORMED: Esophagogastroduodenoscopy with cold biopsy. PREOPERATIVE DIAGNOSIS: Melena. POSTOPERATIVE DIAGNOSES: Gastritis and duodenal ulcer. SURGEON: Murphy Guido MD INSTRUMENT: Olympus video endoscope. MEDICATIONS: MAC anesthesia by anesthesia services. COMPLICATIONS: No apparent complications. ESTIMATED BLOOD LOSS: Minimal. SPECIMENS: Gastric antrum, rule out gastritis. IMPLANTS: None. ASSISTANTS: None. CONDITION AT COMPLETION: Stable. DESCRIPTION OF PROCEDURE: The patient was informed of the risks and benefits of the procedure. He signed the informed consent to proceed. He was placed in left lateral decubitus position. The above sedative medications were given. His vital signs remained stable throughout the procedure. The instrument was advanced from the mouth to the second portion of the duodenum under direct visualization. At that point, the bowel was insufflated and the endoscope was slowly withdrawn. FINDINGS: 1. No blood and no blood clots in the upper GI tract. 2. A 5 mm wide-based duodenal ulcer with surrounding duodenitis and edema. 3. Antral gastritis, status post cold biopsy to rule out H. pylori. 4. Normal esophagus. RECOMMENDATIONS: 1. Convert Protonix to twice daily therapy. 2. Clear liquid diet and if tolerates, advance to regular. 3. Continue to hold aspirin and other nonsteroidal anti-inflammatory drugs today. 4. Okay to transition to the floor since no severe active bleeding was seen. TID: [id number] RECEIPT: [id number] ROSEY/BINDU
--- NOTE | 2020-11-28 11:18 | Progress Note ---
Assessment and Plan (Principal Problem) GI Bleed Acute Renal Failure on CKD Anemia Hyperkalemia Hypotension Diabetes Mellitus Acidosis Plan: -Cr is trending down -K is down to 5.3 -Monitor BMP daily and as needed -CXR-No acute findings -Renally dose medications -Obtain daily weights -Strict I/O's daily -Continue to monitor Subjective Date of service: 11/28/20 Principal diagnosis: HERB and hyperkalemia Interval history: tolerated EGD well Objective - Vital Signs Vital signs: Vital Signs - 12hr 11/27/20 11/27/20 11/28/20 23:31 23:44 00:01 Temperature Pulse Rate 90 95 H 92 H Pulse Rate [ From Monitor] Respiratory 16 24 16 Rate Blood Pressure 98/36 100/36 O2 Sat by Pulse 100 100 100 Oximetry 11/28/20 11/28/20 11/28/20 00:05 00:31 01:00 Temperature Pulse Rate 91 H 89 Pulse Rate [ 88 From Monitor] Respiratory 17 16 Rate Blood Pressure 100/36 107/39 105/55 O2 Sat by Pulse 100 100 100 Oximetry 11/28/20 11/28/20 11/28/20 01:01 01:31 02:00 Temperature Pulse Rate 86 84 Pulse Rate [ From Monitor] Respiratory 17 18 Rate Blood Pressure 107/39 98/51 O2 Sat by Pulse 100 100 Oximetry 11/28/20 11/28/20 11/28/20 02:01 02:30 02:43 Temperature Pulse Rate 81 85 Pulse Rate [ From Monitor] Respiratory 15 19 Rate Blood Pressure 87/48 107/38 O2 Sat by Pulse 100 100 Oximetry 11/28/20 11/28/20 11/28/20 03:01 03:31 04:00 Temperature 97.7 F Pulse Rate 81 85 Pulse Rate [ From Monitor] Respiratory 16 15 Rate Blood Pressure 105/35 105/35 116/41 O2 Sat by Pulse 100 100 Oximetry 11/28/20 11/28/20 11/28/20 04:01 04:11 04:31 Temperature Pulse Rate 95 H 85 Pulse Rate [ 81 From Monitor] Respiratory 24 17 Rate Blood Pressure 115/43 O2 Sat by Pulse 100 100 100 Oximetry 11/28/20 11/28/20 11/28/20 05:01 05:31 06:00 Temperature Pulse Rate 84 82 84 Pulse Rate [ From Monitor] Respiratory 16 15 18 Rate Blood Pressure 113/49 101/53 103/55 O2 Sat by Pulse 100 100 100 Oximetry 11/28/20 11/28/20 11/28/20 06:31 07:00 07:01 Temperature 98.2 F Pulse Rate 90 79 Pulse Rate [ From Monitor] Respiratory 19 17 Rate Blood Pressure 103/55 103/55 O2 Sat by Pulse 100 100 Oximetry 11/28/20 11/28/20 11/28/20 07:31 08:00 08:01 Temperature Pulse Rate 84 83 Pulse Rate [ 81 From Monitor] Respiratory 17 15 Rate Blood Pressure 103/55 103/55 O2 Sat by Pulse 100 100 100 Oximetry 11/28/20 11/28/20 11/28/20 08:31 09:01 09:30 Temperature Pulse Rate 88 86 90 Pulse Rate [ From Monitor] Respiratory 18 18 22 Rate Blood Pressure 99/57 117/36 126/60 O2 Sat by Pulse 100 100 100 Oximetry 11/28/20 10:00 Temperature Pulse Rate 77 Pulse Rate [ From Monitor] Respiratory 13 Rate Blood Pressure 71/43 O2 Sat by Pulse 100 Oximetry - General Appearance General appearance: well-developed, well-nourished EENT: ATNC, PERRL Neck: no JVD Respiratory: Present: Clear to Ascultation Cardiology: regular Gastrointestinal: normoactive bowel sounds, no tenderness, no distended Integumentary: no rash, warm and dry Neurologic: no focal deficit, no asterixis - Lab 11/28/20 07:10 11/28/20 07:10 Most recent lab results Calcium 9.1 mg/dL (8.4-10.2) 11/28/20 07:10 Phosphorus 3.40 mg/dL (2.5-4.5) 11/28/20 07:10 Urine Creatinine 21.7 mg/dL (0.1-20.0) H 11/27/20 20:42 Urine Sodium 57 mmol/L 11/27/20 20:42 Urine Total Protein 17 mg/dL (5-11.8) H 11/27/20 20:42 Medications & Allergies - Medications Allergies/Adverse Reactions: Allergies ibuprofen [From Advil] Allergy (Mild, Verified 12/22/18 08:48) Dizziness Home Medications: Home Medications Medication Instructions Recorded Confirmed Last Taken Type Aspirin [Adult Aspirin] 81 mg PO DAILY 10/17/19 10/23/19 10/17/19 09:00 History Insulin Detemir [Levemir VIAL] 0 unit SQ QHS 10/17/19 10/23/19 10/22/19 21:00 History Lisinopril [Zestril] 5 mg PO DAILY 10/17/19 10/23/19 10/22/19 18:00 History Lispro Insulin [HumaLOG] 0 unit SQ TID 10/17/19 10/23/19 10/22/19 18:00 History Lovastatin [Altoprev] 20 mg PO DAILY 10/17/19 10/23/19 10/22/19 18:00 History metFORMIN [Glucophage] 500 mg PO QDAY 10/17/19 10/23/19 10/22/19 09:00 History Acetaminophen/Codeine [Tylenol 1 tab PO Q6H PRN #15 tab 02/27/20 Unknown Rx /Codeine # 3 tab] Active Medications: Generic Name Dose Route Start Last Admin Trade Name Freq PRN Reason Stop Dose Admin Acetaminophen 650 mg 11/27/20 22:41 Acetaminophen 325 Mg Tab PO Q4H PRN Pain MILD(1-3)/Fever >100.5/BARNETT Sodium Chloride 1,000 mls @ 125 mls/hr 11/28/20 06:45 11/28/20 08:40 Nacl 0.9% 1000 Ml IV 125 mls/hr DIRECT JANE Administration Insulin Human Lispro 0 unit 11/28/20 07:00 11/28/20 08:25 Insulin Lispro 100 Unit/Ml SUB-Q 6 unit Q6HR JANE Administration Protocol Metoclopramide HCl 5 mg 11/27/20 22:41 Metoclopramide 10 Mg/2 Ml Inj IV Q6H PRN Nausea And Vomiting Morphine Sulfate 2 mg 11/27/20 22:41 Morphine 2 Mg/1 Ml Inj IV Q4H PRN Pain, Moderate (4-6) Multivitamins 1 each 11/28/20 11:00 Multivitamins ,Therapeutic Tab PO QDAY [facility] Ondansetron HCl 4 mg 11/27/20 22:41 Ondansetron 4 Mg/2 Ml Inj IV Q8H PRN Nausea And Vomiting Pantoprazole Sodium 40 mg 11/28/20 22:00 Pantoprazole 40 Mg Inj IV BID [facility] Promethazine HCl 25 mg 11/27/20 22:41 Promethazine 25 Mg Rect Supp [place] Q6H PRN N/V IF NPO AND NO IV ACCESS Sodium Chloride 10 ml 11/28/20 10:00 Sodium Chloride 0.9% 10 Ml Flush Syringe IV BID JANE Sodium Chloride 10 ml 11/27/20 22:41 Sodium Chloride 0.9% 10 Ml Flush Syringe IV PRN PRN LINE FLUSH
--- NOTE | 2020-11-28 11:34 | Consultation ---
History of Present Illness - Reason for Consult Consult date: 11/28/20 GI bleed - History of Present Illness 80 y/o male with GI bleed Past History Past Medical History: anemia, diabetes, hypertension, renal failure Past Surgical History: No surgical history Social history: no significant social history Family history: no significant family history Medications and Allergies Allergies Allergy/AdvReac Type Severity Reaction Status Date / Time ibuprofen [From Advil] Allergy Mild Dizziness Verified 12/22/18 08:48 Home Medications Medication Instructions Recorded Confirmed Last Taken Type Aspirin [Adult Aspirin] 81 mg PO DAILY 10/17/19 11/28/20 11/26/20 21:00 History Insulin Detemir [Levemir VIAL] 10 unit SQ QHS 10/17/19 11/28/20 11/22/20 09:00 History Lisinopril [Zestril] 5 mg PO DAILY 10/17/19 11/28/20 11/26/20 09:00 History Lispro Insulin [HumaLOG] 0 unit SQ TID 10/17/19 11/28/20 11/26/20 17:00 History Lovastatin [Altoprev] 20 mg PO DAILY 10/17/19 11/28/20 11/26/20 21:00 History metFORMIN [Glucophage] 500 mg PO QDAY 10/17/19 11/28/20 10/22/19 09:00 History Acetaminophen/Codeine [Tylenol 1 tab PO Q6H PRN #15 tab 02/27/20 11/28/20 10/22/20 09:00 Rx /Codeine # 3 tab] Active Meds: Active Medications Acetaminophen (Acetaminophen 325 Mg Tab) 650 mg PO Q4H PRN PRN Reason: Pain MILD(1-3)/Fever >100.5/BARNETT Sodium Chloride (Nacl 0.9% 1000 Ml) 1,000 mls @ 125 mls/hr IV DIRECT JANE Last Admin: 11/28/20 08:40 Dose: 125 mls/hr Documented by: Insulin Human Lispro (Insulin Lispro 100 Unit/Ml) 0 unit SUB-Q Q6HR JANE; Protocol Last Admin: 11/28/20 08:25 Dose: 6 unit Documented by: Metoclopramide HCl (Metoclopramide 10 Mg/2 Ml Inj) 5 mg IV Q6H PRN PRN Reason: Nausea And Vomiting Morphine Sulfate (Morphine 2 Mg/1 Ml Inj) 2 mg IV Q4H PRN PRN Reason: Pain, Moderate (4-6) Multivitamins (Multivitamins ,Therapeutic Tab) 1 each PO QDAY JANE Ondansetron HCl (Ondansetron 4 Mg/2 Ml Inj) 4 mg IV Q8H PRN PRN Reason: Nausea And Vomiting Pantoprazole Sodium (Pantoprazole 40 Mg Inj) 40 mg IV BID JANE Promethazine HCl (Promethazine 25 Mg Rect Supp) 25 mg PA Q6H PRN PRN Reason: N/V IF NPO AND NO IV ACCESS Sodium Chloride (Sodium Chloride 0.9% 10 Ml Flush Syringe) 10 ml IV BID JANE Sodium Chloride (Sodium Chloride 0.9% 10 Ml Flush Syringe) 10 ml IV PRN PRN PRN Reason: LINE FLUSH Exam - Constitutional Vitals: Temp Pulse Resp BP Pulse Ox 98.2 F 77 13 71/43 100 11/28/20 07:00 11/28/20 10:00 11/28/20 10:00 11/28/20 10:00 11/28/20 10:00 General appearance: Present: no acute distress, well-nourished - EENT Eyes: Present: PERRL, EOM intact ENT: hearing intact - Neck Neck: Present: supple, normal ROM - Respiratory Respiratory effort: normal Respiratory: bilateral: CTA Results - Labs CBC & Chem 7: 11/29/20 04:12 11/29/20 04:12 Labs: Abnormal lab results 11/27/20 11/27/20 11/27/20 Range/Units 10:50 13:06 13:06 WBC 11.7 H (4.5-11.0) K/mm3 RBC 1.60 L (3.65-5.03) M/mm3 Hgb 5.2 L* (11.8-15.2) gm/dl Hct 16.1 L* (35.5-45.6) % MCV 100 H (84-94) fl MCHC (32-34) % Lymph % (Auto) 11.1 L (13.4-35.0) % [place] % (Auto) (0.0-7.3) % Lymph # (Auto) (1.2-5.4) K/mm3 Seg Neutrophils % 83.7 H (40.0-70.0) % Seg Neutrophils # 9.8 H (1.8-7.7) K/mm3 PT (12.2-14.9) Sec. INR (0.87-1.13) Sodium 133 L (137-145) mmol/L Potassium 6.3 H* (3.6-5.0) mmol/L Chloride (98-107) mmol/L Carbon Dioxide 11 L (22-30) mmol/L BUN 93 H (9-20) mg/dL Creatinine 1.6 H (0.8-1.3) mg/dL Glucose 392 H (75-100) mg/dL POC Glucose 345 H (70-105) mg/dL Hemoglobin A1c (4-6) % Calcium 8.0 L (8.4-10.2) mg/dL Total Protein 4.9 L (6.3-8.2) g/dL Albumin 2.7 L (3.9-5) g/dL Urine Creatinine (0.1-20.0) mg/dL Urine Total Protein (5-11.8) mg/dL Crossmatch 11/27/20 11/27/20 11/27/20 Range/Units 13:10 13:47 20:42 WBC (4.5-11.0) K/mm3 RBC (3.65-5.03) M/mm3 Hgb (11.8-15.2) gm/dl Hct (35.5-45.6) % MCV (84-94) fl MCHC (32-34) % Lymph % (Auto) (13.4-35.0) % [place] % (Auto) (0.0-7.3) % Lymph # (Auto) (1.2-5.4) K/mm3 Seg Neutrophils % (40.0-70.0) % Seg Neutrophils # (1.8-7.7) K/mm3 PT 15.1 H (12.2-14.9) Sec. INR 1.19 H (0.87-1.13) Sodium (137-145) mmol/L Potassium (3.6-5.0) mmol/L Chloride (98-107) mmol/L Carbon Dioxide (22-30) mmol/L BUN (9-20) mg/dL Creatinine (0.8-1.3) mg/dL Glucose (75-100) mg/dL POC Glucose (70-105) mg/dL Hemoglobin A1c (4-6) % Calcium (8.4-10.2) mg/dL Total Protein (6.3-8.2) g/dL Albumin (3.9-5) g/dL Urine Creatinine 21.7 H (0.1-20.0) mg/dL Urine Total Protein 17 H (5-11.8) mg/dL Crossmatch See Detail 11/27/20 11/27/20 11/27/20 Range/Units 20:56 22:34 22:51 WBC (4.5-11.0) K/mm3 RBC (3.65-5.03) M/mm3 Hgb 8.5 L D (11.8-15.2) gm/dl Hct 24.1 L D (35.5-45.6) % MCV (84-94) fl MCHC (32-34) % Lymph % (Auto) (13.4-35.0) % [place] % (Auto) (0.0-7.3) % Lymph # (Auto) (1.2-5.4) K/mm3 Seg Neutrophils % (40.0-70.0) % Seg Neutrophils # (1.8-7.7) K/mm3 PT (12.2-14.9) Sec. INR (0.87-1.13) Sodium (137-145) mmol/L Potassium 5.8 H (3.6-5.0) mmol/L Chloride (98-107) mmol/L Carbon Dioxide (22-30) mmol/L BUN (9-20) mg/dL Creatinine (0.8-1.3) mg/dL Glucose (75-100) mg/dL POC Glucose 368 H (70-105) mg/dL Hemoglobin A1c (4-6) % Calcium (8.4-10.2) mg/dL Total Protein (6.3-8.2) g/dL Albumin (3.9-5) g/dL Urine Creatinine (0.1-20.0) mg/dL Urine Total Protein (5-11.8) mg/dL Crossmatch 11/28/20 11/28/20 11/28/20 Range/Units 04:47 07:10 07:10 WBC (4.5-11.0) K/mm3 RBC 2.53 L (3.65-5.03) M/mm3 Hgb 8.2 L (11.8-15.2) gm/dl Hct 23.7 L (35.5-45.6) % MCV (84-94) fl MCHC 35 H (32-34) % Lymph % (Auto) 11.7 L (13.4-35.0) % [place] % (Auto) 8.2 H (0.0-7.3) % Lymph # (Auto) 0.8 L (1.2-5.4) K/mm3 Seg Neutrophils % 75.6 H (40.0-70.0) % Seg Neutrophils # (1.8-7.7) K/mm3 PT (12.2-14.9) Sec. INR (0.87-1.13) Sodium (137-145) mmol/L Potassium 5.3 H (3.6-5.0) mmol/L Chloride 113.3 H (98-107) mmol/L Carbon Dioxide 21 L D (22-30) mmol/L BUN 65 H (9-20) mg/dL Creatinine (0.8-1.3) mg/dL Glucose 286 H (75-100) mg/dL POC Glucose 278 H (70-105) mg/dL Hemoglobin A1c (4-6) % Calcium (8.4-10.2) mg/dL Total Protein (6.3-8.2) g/dL Albumin (3.9-5) g/dL Urine Creatinine (0.1-20.0) mg/dL Urine Total Protein (5-11.8) mg/dL Crossmatch 11/28/20 11/28/20 Range/Units 07:10 07:36 WBC (4.5-11.0) K/mm3 RBC (3.65-5.03) M/mm3 Hgb (11.8-15.2) gm/dl Hct (35.5-45.6) % MCV (84-94) fl MCHC (32-34) % Lymph % (Auto) (13.4-35.0) % [place] % (Auto) (0.0-7.3) % Lymph # (Auto) (1.2-5.4) K/mm3 Seg Neutrophils % (40.0-70.0) % Seg Neutrophils # (1.8-7.7) K/mm3 PT (12.2-14.9) Sec. INR (0.87-1.13) Sodium (137-145) mmol/L Potassium (3.6-5.0) mmol/L Chloride (98-107) mmol/L Carbon Dioxide (22-30) mmol/L BUN (9-20) mg/dL Creatinine (0.8-1.3) mg/dL Glucose (75-100) mg/dL POC Glucose 273 H (70-105) mg/dL Hemoglobin A1c 8.1 H (4-6) % Calcium (8.4-10.2) mg/dL Total Protein (6.3-8.2) g/dL Albumin (3.9-5) g/dL Urine Creatinine (0.1-20.0) mg/dL Urine Total Protein (5-11.8) mg/dL Crossmatch Assessment and Plan 80 y/o male with GI bleed secondary to duodenal ulcer. 1. Scoped this am. Duodenal ulcer seen. Not actively bleeding. Biopsies done. Stable. GI suggest BID PPI and clear liquids. They are ok with transfer out of unit, will monitor for a few more hours to be safe as he did drop his hgb to 5, but no other values in our system to compare. Would check at least BID H/H's for 24 hours. CCT 31 min
--- NOTE | 2020-11-28 11:46 | Post Anesthesia Evaluation ---
- Post Anesthesia Evaluation Patient Participated: Yes Airway Patent: Yes Stable Respiratory Function: Yes Nausea/Vomiting: No Temp > 96.8F: Yes Pain Manageable: Yes Adequeate Hydration: Yes Anesthesia Complications: No Block Receding Appropriately: Not Applicable Patient on Ventilator: No
[2020-11-28] MEDS: MULTIVITAMINS ,THERAPEUTIC TAB PO SCH (11:55)
--- NOTE | 2020-11-28 15:58 | Progress Note ---
Assessment and Plan Assessment and plan: 61-year-old male with insulin-dependent diabetes, CKD stage III, hyperkalemia, hypertension, prostate cancer and hyperlipidemia admitted with GI bleed, anemia, hyperkalemia, metabolic acidosis, acute kidney injury Acute GI bleed Anemia Hyperkalemia Hyponatremia Hyperglycemia Leukocytosis Metabolic acidosis Acute kidney injury 2/2 vasomotor nephropathy Diabetes mellitus Hyperlipidemia Hypertension -CCM, nephrology, GI consulted, appreciate recommendations -COVID-19 PCR negative -Baseline creatinine 1.4-1.9 per nephrology -S/p Kayexalate, insulin, calcium gluconate, D50, albuterol, 2 L normal saline bolus in the ED -S/p 2 units PRBC -S/p Protonix drip now on PPI twice daily -Renal ultrasound pending -Strict intake and output -Avoid nephrotoxic medications -MIVF per nephrology -Cleared for clear liquid diet per GI -S/p endoscopy with GI on 11/28 which revealed a nonbleeding duodenal ulcer, gastr itis -Hemoglobin A1c 8.1 -SSI, accucheck ACHS -Trend CBC, BMP GI/DVT prophylaxis: Protonix twice daily, SCDs to bilateral resolved in bed, avoid chemical anticoagulation in setting of recent GI bleed Disposition: ICU, may transfer to floor The high probability of a clinically significant, sudden or life threatening deterioration of the [GI] system(s) required my full and direct attention, inter vention and personal management. The aggregate critical care time was [35] minutes. This time is in addition to time spent performing reported procedures but includes the following: [x] Data Review and interpretation [x] Patient assessment and monitoring of vital signs [x] Documentation [x] Medication orders and management History Interval history: This is 61-year-old male with insulin-dependent diabetes, CKD stage III, hyperkalemia, hypertension, prostate cancer and hyperlipidemia who found patient to be hypotensive, tachycardic, unable to walk with hyperglycemia and found down after fall. Upon presentation to the emergency department patient was initially obtunded but after IV fluid resuscitation he was verbal. He had melena in the emergency department and reported black tarry stools for the past 3 days. Work-up in the emergency department revealed anemia with a hemoglobin/hematocrit of 5.2/16.1 which improved to 8.5/24.1 after 2 units PRBC, hyperkalemia at 6.3, hyponatremia, elevated blood glucose, metabolic acidosis and elevated BUN/creatinine. Patient was admitted to the hospital service with consults to GI, CCM and nephrology for symptomatic anemia, hyperkalemia, hyponatremia, CKD stage III and hyperglycemia. 11/28: Patient received a EGD today and he has been cleared for clear liquid diet and Protonix has been changed to twice daily dosage. H/H after 2 units PRBC improved to 8.5/24. Patient is had slight hyperkalemia today and was given Kionex. We will continue to trend CBC and BMP. Hospitalist Physical - Constitutional Vitals: Temp Pulse Resp BP Pulse Ox 98.9 F 83 18 103/51 100 11/28/20 12:08 11/28/20 15:01 11/28/20 15:01 11/28/20 15:01 11/28/20 15:01 General appearance: Present: no acute distress, well-nourished - EENT Eyes: Present: PERRL, EOM intact ENT: hearing intact, clear oral mucosa, poor dentition - Neck Neck: Present: normal ROM - Respiratory Respiratory effort: normal Respiratory: bilateral: CTA - Cardiovascular Rhythm: regular Heart Sounds: Present: S1 & S2. Absent: systolic murmur, diastolic murmur - Extremities Extremities: no ischemia, pulses intact, pulses symmetrical, No edema, normal temperature, normal color, Full ROM Peripheral Pulses: within normal limits - Abdominal General gastrointestinal: soft, non-tender, non-distended, normal bowel sounds - Integumentary Integumentary: Present: clear, warm, dry - Psychiatric Psychiatric: appropriate mood/affect, cooperative - Neurologic Neurologic: CNII-XII intact, no focal deficits, moves all extremities - Allied Health Allied health notes reviewed: nursing, RT, social work HEART Score - HEART Score Age: > 65 Risk factors: 1-2 risk factors Troponin: Troponin T < 0.010 ng/mL (0.00-0.029) 11/27/20 13:06 - Critical Actions Critical Actions: 4-6 pts:12-16.6% risk of adverse cardiac event. Should be admitted Results - Labs CBC & Chem 7: 11/28/20 07:10 11/28/20 07:10 Labs: Laboratory Last Values WBC 6.7 K/mm3 (4.5-11.0) 11/28/20 07:10 RBC 2.53 M/mm3 (3.65-5.03) L 11/28/20 07:10 Hgb 8.2 gm/dl (11.8-15.2) L 11/28/20 07:10 Hct 23.7 % (35.5-45.6) L 11/28/20 07:10 MCV 94 fl (84-94) 11/28/20 07:10 MCH 32 pg (28-32) 11/28/20 07:10 MCHC 35 % (32-34) H 11/28/20 07:10 RDW 14.7 % (13.2-15.2) 11/28/20 07:10 Plt Count 217 K/mm3 (140-440) 11/28/20 07:10 Lymph % (Auto) 11.7 % (13.4-35.0) L 11/28/20 07:10 [place] % (Auto) 8.2 % (0.0-7.3) H 11/28/20 07:10 Eos % (Auto) 3.8 % (0.0-4.3) 11/28/20 07:10 Baso % (Auto) 0.7 % (0.0-1.8) 11/28/20 07:10 Lymph # (Auto) 0.8 K/mm3 (1.2-5.4) L 11/28/20 07:10 [place] # (Auto) 0.5 K/mm3 (0.0-0.8) 11/28/20 07:10 Eos # (Auto) 0.3 K/mm3 (0.0-0.4) 11/28/20 07:10 Baso # (Auto) 0.0 K/mm3 (0.0-0.1) 11/28/20 07:10 Seg Neutrophils % 75.6 % (40.0-70.0) H 11/28/20 07:10 Seg Neutrophils # 5.0 K/mm3 (1.8-7.7) 11/28/20 07:10 PT 15.1 Sec. (12.2-14.9) H 11/27/20 13:47 INR 1.19 (0.87-1.13) H 11/27/20 13:47 APTT 28.6 Sec. (24.2-36.6) 11/27/20 13:47 Sodium 143 mmol/L (137-145) D 11/28/20 07:10 Potassium 5.3 mmol/L (3.6-5.0) H 11/28/20 07:10 Chloride 113.3 mmol/L (98-107) H 11/28/20 07:10 Carbon Dioxide 21 mmol/L (22-30) L D 11/28/20 07:10 Anion Gap 14 mmol/L 11/28/20 07:10 BUN 65 mg/dL (9-20) H 11/28/20 07:10 Creatinine 1.1 mg/dL (0.8-1.3) 11/28/20 07:10 Estimated GFR > 60 ml/min 11/28/20 07:10 BUN/Creatinine Ratio 59 % 11/28/20 07:10 Glucose 286 mg/dL (75-100) H 11/28/20 07:10 POC Glucose 243 mg/dL (70-105) H 11/28/20 11:35 Hemoglobin A1c 8.1 % (4-6) H 11/28/20 07:10 Ketones Quantitative Negative (Negative) 11/27/20 13:06 Calcium 9.1 mg/dL (8.4-10.2) 11/28/20 07:10 Phosphorus 3.40 mg/dL (2.5-4.5) 11/28/20 07:10 Total Bilirubin 0.20 mg/dL (0.1-1.2) 11/27/20 13:06 Direct Bilirubin < 0.2 mg/dL (0-0.2) 11/27/20 13:06 Indirect Bilirubin 0.0 mg/dL 11/27/20 13:06 AST 15 units/L (5-40) 11/27/20 13:06 ALT 15 units/L (7-56) 11/27/20 13:06 Alkaline Phosphatase 42 units/L (35-129) 11/27/20 13:06 Troponin T < 0.010 ng/mL (0.00-0.029) 11/27/20 13:06 Total Protein 4.9 g/dL (6.3-8.2) L 11/27/20 13:06 Albumin 2.7 g/dL (3.9-5) L 11/27/20 13:06 Albumin/Globulin Ratio 1.2 % 11/27/20 13:06 Urine Color Straw (Yellow) 11/27/20 11:52 Urine Turbidity Clear (Clear) 11/27/20 11:52 Urine pH 5.0 (5.0-7.0) 11/27/20 11:52 Ur Specific [place] 1.011 (1.003-1.030) 11/27/20 11:52 Urine Protein <15 mg/dl mg/dL (Negative) 11/27/20 11:52 Urine Glucose (UA) >=500 mg/dL (Negative) 11/27/20 11:52 Urine Ketones 20 mg/dL (Negative) 11/27/20 11:52 Urine Blood Sm (Negative) 11/27/20 11:52 Urine Nitrite Neg (Negative) 11/27/20 11:52 Urine Bilirubin Neg (Negative) 11/27/20 11:52 Urine Urobilinogen < 2.0 mg/dL (<2.0) 11/27/20 11:52 Ur Leukocyte Esterase Neg (Negative) 11/27/20 11:52 Urine WBC (Auto) < 1.0 /HPF (0.0-6.0) 11/27/20 11:52 Urine RBC (Auto) 1.0 /HPF (0.0-6.0) 11/27/20 11:52 U Epithel Cells (Auto) < 1.0 /HPF (0-13.0) 11/27/20 11:52 Urine Mucus Few /HPF 11/27/20 11:52 Urine Eosinophils None seen (None Seen) 11/27/20 20:42 Urine Creatinine 21.7 mg/dL (0.1-20.0) H 11/27/20 20:42 Protein/Creatinin Ratio 0.78 11/27/20 20:42 Urine Sodium 57 mmol/L 11/27/20 20:42 Urine Total Protein 17 mg/dL (5-11.8) H 11/27/20 20:42 Coronavirus (PCR) Negative (Negative) 11/28/20 09:55 Blood Type B POSITIVE 11/27/20 13:10 Antibody Screen Negative 11/27/20 13:10 Crossmatch See Detail 11/27/20 13:10 Powell/IV: Voiding Method Urinal Active Medications - Current Medications Current Medications: Generic Name Dose Route Start Last Admin Trade Name Freq PRN Reason Stop Dose Admin Acetaminophen 650 mg 11/27/20 22:41 Acetaminophen 325 Mg Tab PO Q4H PRN Pain MILD(1-3)/Fever >100.5/BARNETT Sodium Chloride 1,000 mls @ 125 mls/hr 11/28/20 06:45 11/28/20 08:40 Nacl 0.9% 1000 Ml IV 125 mls/hr DIRECT JANE Administration Insulin Human Lispro 0 unit 11/28/20 07:00 11/28/20 11:53 Insulin Lispro 100 Unit/Ml SUB-Q 4 unit Q6HR JANE Administration Protocol Metoclopramide HCl 5 mg 11/27/20 22:41 Metoclopramide 10 Mg/2 Ml Inj IV Q6H PRN Nausea And Vomiting Morphine Sulfate 2 mg 11/27/20 22:41 Morphine 2 Mg/1 Ml Inj IV Q4H PRN Pain, Moderate (4-6) Multivitamins 1 each 11/28/20 11:00 11/28/20 11:55 Multivitamins ,Therapeutic Tab PO 1 each QDAY JANE Administration Ondansetron HCl 4 mg 11/27/20 22:41 Ondansetron 4 Mg/2 Ml Inj IV Q8H PRN Nausea And Vomiting Pantoprazole Sodium 40 mg 11/28/20 22:00 Pantoprazole 40 Mg Inj IV BID JANE Promethazine HCl 25 mg 11/27/20 22:41 Promethazine 25 Mg Rect Supp FL Q6H PRN N/V IF NPO AND NO IV ACCESS Sodium Chloride 10 ml 11/28/20 10:00 11/28/20 11:52 Sodium Chloride 0.9% 10 Ml Flush Syringe IV 10 ml BID JANE Administration Sodium Chloride 10 ml 11/27/20 22:41 Sodium Chloride 0.9% 10 Ml Flush Syringe IV PRN PRN LINE FLUSH
--- NOTE | 2020-11-28 17:18 | Ultrasound Report ---
ULTRASOUND RENAL INDICATION / CLINICAL INFORMATION: winsome failure. COMPARISON: CT from 06/25/2020 FINDINGS: RIGHT KIDNEY: Size: 9.9 cm - Echogenicity: Normal. - Cortical Thickness: Normal. - Hydronephrosis: None. - Cyst or mass: No significant abnormality. - Stones: None seen. LEFT KIDNEY: Size: 9.3 cm - Echogenicity: Normal. - Cortical Thickness: Normal. - Hydronephrosis: Left extrarenal pelvis is again seen. No evidence of hydronephrosis. - Cyst or mass: 2.4 cm hypoechoic structure in the region of focal cortical thinning at the midpole o f the left kidney appears cystic on prior CT from 02/26/2020 and is unchanged in size. - Stones: None seen. URINARY BLADDER: No significant abnormality. FREE FLUID: None. ADDITIONAL FINDINGS: Splenic cyst is again seen, unchanged. IMPRESSION: 1. No acute sonographic abnormality of the kidneys. No evidence of hydronephrosis. 2. Other stable chronic and incidental findings as above. Signer Name: Adriel Lorenzana MD Signed: 11/28/2020 5:14 PM Workstation Name: [id number]
--- NOTE | 2020-11-28 17:44 | Electrocardiograph Report ---
[facility] Test Date: 2020-11-27 Test Time: 10:56:40 Pat Name: UMM JULES Department: Room: A258 Gender: M Supervisor Mapping: MAI : 1940 Requested By: JOHAN ORELLANA Order Number: [id number] Reading MD: Baljinder Tuttle Measurements Intervals [place] Rate: 101 P: 84 CT: 163 QRS: 20 QRSD: 82 T: 73 QT: 348 QTc: 451 Interpretive Statements Sinus tachycardia Borderline ST depression, lateral leads No previous ECG available for comparison Electronically Signed On 11-28-2020 17:44:10 EDT by Baljinder Tuttle
[2020-11-28 20:09] LABS: Hematocrit 22.5 % (35.5-45.6); Hemoglobin 7.4 gm/dl (11.8-15.2)
[2020-11-28] MEDS: PANTOPRAZOLE 40 MG INJ IV SCH (21:43)
[2020-11-29] MEDS: INSULIN LISPRO 100 UNIT/ML SUB-Q SCH ×5 (00:10→22:36)
[2020-11-29 05:09] LABS: Basophils # (Auto) 0.1 K/mm3 (0.0-0.1); Basophils % (Auto) 0.8 % (0.0-1.8); Eosinophils # (Auto) 0.4 K/mm3 (0.0-0.4); Eosinophils % (Auto) 6.8 % (0.0-4.3); Hematocrit 23.6 % (35.5-45.6); Lymphocytes # (Auto) 0.9 K/mm3 (1.2-5.4); Lymphocytes % (Auto) 14.3 % (13.4-35.0); Mean Corpuscular HGB Conc 34 % (32-34); Mean Corpuscular Volume 94 fl (84-94); Monocytes # (Auto) 0.5 K/mm3 (0.0-0.8); Monocytes % (Auto) 7.9 % (0.0-7.3); Platelet Count 229 K/mm3 (140-440); Red Blood Count 2.52 M/mm3 (3.65-5.03); Red Cell Distribution Width 15.1 % (13.2-15.2)
[2020-11-29 05:25] LABS: BUN/Creatinine Ratio 33; Blood Urea Nitrogen 30 mg/dL (9-20); Calcium 8.6 mg/dL (8.4-10.2); Hemolysis Index 4
--- NOTE | 2020-11-29 08:33 | Progress Note ---
Assessment and Plan Assessment and plan: 61-year-old male with insulin-dependent diabetes, CKD stage III, hyperkalemia, hypertension, prostate cancer and hyperlipidemia admitted with GI bleed, anemia, hyperkalemia, metabolic acidosis, acute kidney injury Acute GI bleed Anemia Hyperkalemia Hyponatremia Hyperglycemia Leukocytosis Metabolic acidosis Acute kidney injury 2/2 vasomotor nephropathy Diabetes mellitus Hyperlipidemia Hypertension -CCM, nephrology, GI consulted, appreciate recommendations -COVID-19 PCR negative -Baseline creatinine 1.4-1.9 per nephrology -S/p Kayexalate, insulin, calcium gluconate, D50, albuterol, 2 L normal saline bolus in the ED -S/p 2 units PRBC -S/p Protonix drip now on PPI twice daily -Renal ultrasound pending -Strict intake and output -Avoid nephrotoxic medications -MIVF per nephrology -Cleared for clear liquid diet per GI -S/p endoscopy with GI on 11/28 which revealed a nonbleeding duodenal ulcer, alysa ritis -Hemoglobin A1c 8.1 -SSI, accucheck ACHS -Trend CBC, BMP GI/DVT prophylaxis: Protonix twice daily, SCDs to bilateral resolved in bed, avoid chemical anticoagulation in setting of recent GI bleed Disposition: ICU, may transfer to floor The high probability of a clinically significant, sudden or life threatening deterioration of the [GI] system(s) required my full and direct attention, inte rvention and personal management. The aggregate critical care time was [35] minutes. This time is in addition to time spent performing reported procedures but includes the following: [x] Data Review and interpretation [x] Patient assessment and monitoring of vital signs [x] Documentation [x] Medication orders and management History Interval history: This is 61-year-old male with insulin-dependent diabetes, CKD stage III, hyperkalemia, hypertension, prostate cancer and hyperlipidemia who found patient to be hypotensive, tachycardic, unable to walk with hyperglycemia and found down after fall. Upon presentation to the emergency department patient was initially obtunded but after IV fluid resuscitation he was verbal. He had melena in the emergency department and reported black tarry stools for the past 3 days. Work-up in the emergency department revealed anemia with a hemoglobin/hematocrit of 5.2/16.1 which improved to 8.5/24.1 after 2 units PRBC, hyperkalemia at 6.3, hyponatremia, elevated blood glucose, metabolic acidosis and elevated BUN/creatinine. Patient was admitted to the hospital service with consults to GI, CCM and nephrology for symptomatic anemia, hyperkalemia, hyponatremia, CKD stage III and hyperglycemia. 11/28: Patient received a EGD today and he has been cleared for clear liquid diet and Protonix has been changed to twice daily dosage. H/H after 2 units PRBC improved to 8.5/24. Patient is had slight hyperkalemia today and was given Kionex. We will continue to trend CBC and BMP. 11/29/2020; patient is on clear liquid diet. Hemoglobin this morning was 8. Continue with Protonix. GI consult appreciated. Will advance diet. History Interval history: Patient was seen and evaluated this morning No complaints Hospitalist Physical - Physical exam Narrative exam: Not in cardiopulmonary distress. The patient appeared well nourished and normally developed. Vital signs as documented. Head exam is unremarkable. No scleral icterus . Neck is without jugular venous distension, thyromegaly, or carotid bruits. Lungs are clear to auscultation. Cardiac exam reveals regular rate and Rhythm. Abdominal exam reveals normal bowel sounds, nontender, no organomegaly. Extremities are nonedematous and both femoral and pedal pulses are normal. DENTOFACIAL ORTHOPEDICS DENTIST: Alert and oriented 3. No focal weakness. - Constitutional Vitals: Temp Pulse Resp BP Pulse Ox 99.0 F 88 18 122/68 100 11/29/20 04:07 11/29/20 04:00 11/29/20 04:07 11/29/20 04:07 11/29/20 04:00 General appearance: Present: no acute distress, well-nourished HEART Score - HEART Score Age: > 65 Risk factors: 1-2 risk factors Troponin: Troponin T < 0.010 ng/mL (0.00-0.029) 11/27/20 13:06 - Critical Actions Critical Actions: 4-6 pts:12-16.6% risk of adverse cardiac event. Should be adm itted Results - Labs CBC & Chem 7: 11/29/20 04:12 11/29/20 04:12 Labs: Laboratory Last Values WBC 6.6 K/mm3 (4.5-11.0) 11/29/20 04:12 RBC 2.52 M/mm3 (3.65-5.03) L 11/29/20 04:12 Hgb 8.0 gm/dl (11.8-15.2) L 11/29/20 04:12 Hct 23.6 % (35.5-45.6) L 11/29/20 04:12 MCV 94 fl (84-94) 11/29/20 04:12 MCH 32 pg (28-32) 11/29/20 04:12 MCHC 34 % (32-34) 11/29/20 04:12 RDW 15.1 % (13.2-15.2) 11/29/20 04:12 Plt Count 229 K/mm3 (140-440) 11/29/20 04:12 Lymph % (Auto) 14.3 % (13.4-35.0) 11/29/20 04:12 [place] % (Auto) 7.9 % (0.0-7.3) H 11/29/20 04:12 Eos % (Auto) 6.8 % (0.0-4.3) H 11/29/20 04:12 Baso % (Auto) 0.8 % (0.0-1.8) 11/29/20 04:12 Lymph # (Auto) 0.9 K/mm3 (1.2-5.4) L 11/29/20 04:12 [place] # (Auto) 0.5 K/mm3 (0.0-0.8) 11/29/20 04:12 Eos # (Auto) 0.4 K/mm3 (0.0-0.4) 11/29/20 04:12 Baso # (Auto) 0.1 K/mm3 (0.0-0.1) 11/29/20 04:12 Seg Neutrophils % 70.2 % (40.0-70.0) H 11/29/20 04:12 Seg Neutrophils # 4.7 K/mm3 (1.8-7.7) 11/29/20 04:12 PT 15.1 Sec. (12.2-14.9) H 11/27/20 13:47 INR 1.19 (0.87-1.13) H 11/27/20 13:47 APTT 28.6 Sec. (24.2-36.6) 11/27/20 13:47 Sodium 147 mmol/L (137-145) H 11/29/20 04:12 Potassium 3.7 mmol/L (3.6-5.0) D 11/29/20 04:12 Chloride 115.1 mmol/L (98-107) H 11/29/20 04:12 Carbon Dioxide 23 mmol/L (22-30) 11/29/20 04:12 Anion Gap 13 mmol/L 11/29/20 04:12 BUN 30 mg/dL (9-20) H 11/29/20 04:12 Creatinine 0.9 mg/dL (0.8-1.3) 11/29/20 04:12 Estimated GFR > 60 ml/min 11/29/20 04:12 BUN/Creatinine Ratio 33 % 11/29/20 04:12 Glucose 112 mg/dL (75-100) H 11/29/20 04:12 POC Glucose 156 mg/dL (70-105) H 11/29/20 05:30 Hemoglobin A1c 8.1 % (4-6) H 11/28/20 07:10 Ketones Quantitative Negative (Negative) 11/27/20 13:06 Calcium 8.6 mg/dL (8.4-10.2) 11/29/20 04:12 Phosphorus 3.40 mg/dL (2.5-4.5) 11/28/20 07:10 Total Bilirubin 0.20 mg/dL (0.1-1.2) 11/27/20 13:06 Direct Bilirubin < 0.2 mg/dL (0-0.2) 11/27/20 13:06 Indirect Bilirubin 0.0 mg/dL 11/27/20 13:06 AST 15 units/L (5-40) 11/27/20 13:06 ALT 15 units/L (7-56) 11/27/20 13:06 Alkaline Phosphatase 42 units/L (35-129) 11/27/20 13:06 Troponin T < 0.010 ng/mL (0.00-0.029) 11/27/20 13:06 Total Protein 4.9 g/dL (6.3-8.2) L 11/27/20 13:06 Albumin 2.7 g/dL (3.9-5) L 11/27/20 13:06 Albumin/Globulin Ratio 1.2 % 11/27/20 13:06 Urine Color Straw (Yellow) 11/27/20 11:52 Urine Turbidity Clear (Clear) 11/27/20 11:52 Urine pH 5.0 (5.0-7.0) 11/27/20 11:52 Ur Specific Mazon 1.011 (1.003-1.030) 11/27/20 11:52 Urine Protein <15 mg/dl mg/dL (Negative) 11/27/20 11:52 Urine Glucose (UA) >=500 mg/dL (Negative) 11/27/20 11:52 Urine Ketones 20 mg/dL (Negative) 11/27/20 11:52 Urine Blood Sm (Negative) 11/27/20 11:52 Urine Nitrite Neg (Negative) 11/27/20 11:52 Urine Bilirubin Neg (Negative) 11/27/20 11:52 Urine Urobilinogen < 2.0 mg/dL (<2.0) 11/27/20 11:52 Ur Leukocyte Esterase Neg (Negative) 11/27/20 11:52 Urine WBC (Auto) < 1.0 /HPF (0.0-6.0) 11/27/20 11:52 Urine RBC (Auto) 1.0 /HPF (0.0-6.0) 11/27/20 11:52 U Epithel Cells (Auto) < 1.0 /HPF (0-13.0) 11/27/20 11:52 Urine Mucus Few /HPF 11/27/20 11:52 Urine Eosinophils None seen (None Seen) 11/27/20 20:42 Urine Creatinine 21.7 mg/dL (0.1-20.0) H 11/27/20 20:42 Protein/Creatinin Ratio 0.78 11/27/20 20:42 Urine Sodium 57 mmol/L 11/27/20 20:42 Urine Total Protein 17 mg/dL (5-11.8) H 11/27/20 20:42 Coronavirus (PCR) Negative (Negative) 11/28/20 09:55 Blood Type B POSITIVE 11/27/20 13:10 Antibody Screen Negative 11/27/20 13:10 Crossmatch See Detail 11/27/20 13:10 Powell/IV: Voiding Method Urinal Active Medications - Current Medications Current Medications: Generic Name Dose Route Start Last Admin Trade Name Freq PRN Reason Stop Dose Admin Acetaminophen 650 mg 11/27/20 22:41 Acetaminophen 325 Mg Tab PO Q4H PRN Pain MILD(1-3)/Fever >100.5/BARNETT Sodium Chloride 1,000 mls @ 125 mls/hr 11/28/20 06:45 11/28/20 08:40 Nacl 0.9% 1000 Ml IV 125 mls/hr DIRECT JANE Administration Insulin Human Lispro 0 unit 11/28/20 07:00 11/29/20 05:53 Insulin Lispro 100 Unit/Ml SUB-Q 3 unit Q6HR JANE Administration Protocol Metoclopramide HCl 5 mg 11/27/20 22:41 Metoclopramide 10 Mg/2 Ml Inj IV Q6H PRN Nausea And Vomiting Morphine Sulfate 2 mg 11/27/20 22:41 Morphine 2 Mg/1 Ml Inj IV Q4H PRN Pain, Moderate (4-6) Multivitamins 1 each 11/28/20 11:00 11/28/20 11:55 Multivitamins ,Therapeutic Tab PO 1 each QDAY JANE Administration Ondansetron HCl 4 mg 11/27/20 22:41 Ondansetron 4 Mg/2 Ml Inj IV Q8H PRN Nausea And Vomiting Pantoprazole Sodium 40 mg 11/28/20 22:00 11/28/20 21:43 Pantoprazole 40 Mg Inj IV 40 mg BID JANE Administration Promethazine HCl 25 mg 11/27/20 22:41 Promethazine 25 Mg Rect Supp [place] Q6H PRN N/V IF NPO AND NO IV ACCESS Sodium Chloride 10 ml 11/28/20 10:00 11/28/20 21:43 Sodium Chloride 0.9% 10 Ml Flush Syringe IV 10 ml BID JANE Administration Sodium Chloride 10 ml 11/27/20 22:41 Sodium Chloride 0.9% 10 Ml Flush Syringe IV PRN PRN LINE FLUSH
[2020-11-29] MEDS: PANTOPRAZOLE 40 MG INJ IV SCH (09:08)
[2020-11-29] MEDS: MULTIVITAMINS ,THERAPEUTIC TAB PO SCH (09:09)
--- NOTE | 2020-11-29 11:23 | Progress Note ---
Assessment and Plan 80 y/o male with GI bleed secondary to duodenal ulcer. 11/29/20: Will sign off. Call if questions. 1. Scoped this am. Duodenal ulcer seen. Not actively bleeding. Biopsies done. Stable. GI suggest BID PPI and clear liquids. They are ok with transfer out of unit, will monitor for a few more hours to be safe as he did drop his hgb to 5, but no other values in our system to compare. Would check at least BID H/H's for 24 hours. CCT 31 min Subjective Date of service: 11/29/20 Principal diagnosis: HERB and hyperkalemia Interval history: Successful transfer out of unit. STable. No pulm issues. Objective - Constitutional Vitals: Vital Signs - 12hr 11/29/20 11/29/20 11/29/20 00:00 04:00 04:07 Temperature 99.0 F Pulse Rate 80 74 Pulse Rate [ 88 88 From Monitor] Respiratory 18 Rate Blood Pressure 122/68 O2 Sat by Pulse 100 100 Oximetry 11/29/20 11/29/20 07:39 08:00 Temperature 98.3 F Pulse Rate 83 83 Pulse Rate [ From Monitor] Respiratory 16 Rate Blood Pressure 103/51 O2 Sat by Pulse 100 Oximetry - Labs CBC & Chem 7: 11/29/20 04:12 11/29/20 04:12 Labs: Abnormal lab results 11/28/20 11/28/20 11/28/20 Range/Units 11:35 16:59 19:42 RBC (3.65-5.03) M/mm3 Hgb 7.4 L (11.8-15.2) gm/dl Hct 22.5 L (35.5-45.6) % [place] % (Auto) (0.0-7.3) % Eos % (Auto) (0.0-4.3) % Lymph # (Auto) (1.2-5.4) K/mm3 Seg Neutrophils % (40.0-70.0) % Sodium (137-145) mmol/L Chloride (98-107) mmol/L BUN (9-20) mg/dL Glucose (75-100) mg/dL POC Glucose 243 H 173 H (70-105) mg/dL 11/28/20 11/29/20 11/29/20 Range/Units 23:51 04:12 04:12 RBC 2.52 L (3.65-5.03) M/mm3 Hgb 8.0 L (11.8-15.2) gm/dl Hct 23.6 L (35.5-45.6) % [place] % (Auto) 7.9 H (0.0-7.3) % Eos % (Auto) 6.8 H (0.0-4.3) % Lymph # (Auto) 0.9 L (1.2-5.4) K/mm3 Seg Neutrophils % 70.2 H (40.0-70.0) % Sodium 147 H (137-145) mmol/L Chloride 115.1 H (98-107) mmol/L BUN 30 H (9-20) mg/dL Glucose 112 H (75-100) mg/dL POC Glucose 274 H (70-105) mg/dL 11/29/20 Range/Units 05:30 RBC (3.65-5.03) M/mm3 Hgb (11.8-15.2) gm/dl Hct (35.5-45.6) % [place] % (Auto) (0.0-7.3) % Eos % (Auto) (0.0-4.3) % Lymph # (Auto) (1.2-5.4) K/mm3 Seg Neutrophils % (40.0-70.0) % Sodium (137-145) mmol/L Chloride (98-107) mmol/L BUN (9-20) mg/dL Glucose (75-100) mg/dL POC Glucose 156 H (70-105) mg/dL Medications & Allergies - Medications Allergies/Adverse Reactions: Allergies ibuprofen [From Advil] Allergy (Mild, Verified 12/22/18 08:48) Dizziness Home Medications: Home Medications Medication Instructions Recorded Confirmed Last Taken Type Aspirin [Adult Aspirin] 81 mg PO DAILY 10/17/19 11/28/20 11/26/20 21:00 History Insulin Detemir [Levemir VIAL] 10 unit SQ QHS 10/17/19 11/28/20 11/22/20 09:00 History Lisinopril [Zestril] 5 mg PO DAILY 10/17/19 11/28/20 11/26/20 09:00 History Lispro Insulin [HumaLOG] 0 unit SQ TID 10/17/19 11/28/20 11/26/20 17:00 History Lovastatin [Altoprev] 20 mg PO DAILY 10/17/19 11/28/20 11/26/20 21:00 History metFORMIN [Glucophage] 500 mg PO QDAY 10/17/19 11/28/20 10/22/19 09:00 History Acetaminophen/Codeine [Tylenol 1 tab PO Q6H PRN #15 tab 02/27/20 11/28/20 10/22/20 09:00 Rx /Codeine # 3 tab] Active Medications: Generic Name Dose Route Start Last Admin Trade Name Freq PRN Reason Stop Dose Admin Acetaminophen 650 mg 11/27/20 22:41 Acetaminophen 325 Mg Tab PO Q4H PRN Pain MILD(1-3)/Fever >100.5/BARNETT Sodium Chloride 1,000 mls @ 125 mls/hr 11/28/20 06:45 11/28/20 08:40 Nacl 0.9% 1000 Ml IV 125 mls/hr DIRECT JANE Administration Insulin Human Lispro 0 unit 11/28/20 07:00 11/29/20 05:53 Insulin Lispro 100 Unit/Ml SUB-Q 3 unit Q6HR JANE Administration Protocol Metoclopramide HCl 5 mg 11/27/20 22:41 Metoclopramide 10 Mg/2 Ml Inj IV Q6H PRN Nausea And Vomiting Morphine Sulfate 2 mg 11/27/20 22:41 Morphine 2 Mg/1 Ml Inj IV Q4H PRN Pain, Moderate (4-6) Multivitamins 1 each 11/28/20 11:00 11/29/20 09:09 Multivitamins ,Therapeutic Tab PO 1 each QDAY JANE Administration Ondansetron HCl 4 mg 11/27/20 22:41 Ondansetron 4 Mg/2 Ml Inj IV Q8H PRN Nausea And Vomiting Pantoprazole Sodium 40 mg 11/28/20 22:00 11/29/20 09:08 Pantoprazole 40 Mg Inj IV 40 mg BID JANE Administration Promethazine HCl 25 mg 11/27/20 22:41 Promethazine 25 Mg Rect Supp [place] Q6H PRN N/V IF NPO AND NO IV ACCESS Sodium Chloride 10 ml 11/28/20 10:00 11/29/20 09:12 Sodium Chloride 0.9% 10 Ml Flush Syringe IV 10 ml BID JANE Administration Sodium Chloride 10 ml 11/27/20 22:41 Sodium Chloride 0.9% 10 Ml Flush Syringe IV PRN PRN LINE FLUSH HEART Score - HEART Score Age: > 65 Risk factors: 1-2 risk factors Troponin: Troponin T < 0.010 ng/mL (0.00-0.029) 11/27/20 13:06 - Critical Actions Critical Actions: 4-6 pts:12-16.6% risk of adverse cardiac event. Should be admitted
--- NOTE | 2020-11-29 13:00 | Progress Note ---
Assessment and Plan (Principal Problem) GI Bleed Acute Renal Failure on CKD Anemia Hyperkalemia Hypotension Diabetes Mellitus Acidosis Plan: -HERB resolved -hyperkalemia resolved -Monitor BMP daily and as needed -CXR-No acute findings -Renally dose medications -Obtain daily weights -Strict I/O's daily -Continue to monitor will sign off. Subjective Date of service: 11/29/20 Principal diagnosis: HERB and hyperkalemia Interval history: no overnight events Objective - Vital Signs Vital signs: Vital Signs - 12hr 11/29/20 11/29/20 11/29/20 04:00 04:07 07:39 Temperature 99.0 F 98.3 F Pulse Rate 74 83 Pulse Rate [ 88 From Monitor] Respiratory 18 16 Rate Blood Pressure 122/68 103/51 O2 Sat by Pulse 100 100 Oximetry 11/29/20 11/29/20 08:00 11:35 Temperature 98.2 F Pulse Rate 83 Pulse Rate [ From Monitor] Respiratory 16 Rate Blood Pressure 116/62 O2 Sat by Pulse Oximetry - Lab 11/29/20 04:12 11/29/20 04:12 Most recent lab results Calcium 8.6 mg/dL (8.4-10.2) 11/29/20 04:12 Phosphorus 3.40 mg/dL (2.5-4.5) 11/28/20 07:10 Urine Creatinine 21.7 mg/dL (0.1-20.0) H 11/27/20 20:42 Urine Sodium 57 mmol/L 11/27/20 20:42 Urine Total Protein 17 mg/dL (5-11.8) H 11/27/20 20:42 Medications & Allergies - Medications Allergies/Adverse Reactions: Allergies ibuprofen [From Advil] Allergy (Mild, Verified 12/22/18 08:48) Dizziness Home Medications: Home Medications Medication Instructions Recorded Confirmed Last Taken Type Aspirin [Adult Aspirin] 81 mg PO DAILY 10/17/19 11/28/20 11/26/20 21:00 History Insulin Detemir [Levemir VIAL] 10 unit SQ QHS 10/17/19 11/28/20 11/22/20 09:00 History Lisinopril [Zestril] 5 mg PO DAILY 10/17/19 11/28/20 11/26/20 09:00 History Lispro Insulin [HumaLOG] 0 unit SQ TID 10/17/19 11/28/20 11/26/20 17:00 History Lovastatin [Altoprev] 20 mg PO DAILY 10/17/19 11/28/20 11/26/20 21:00 History metFORMIN [Glucophage] 500 mg PO QDAY 10/17/19 11/28/20 10/22/19 09:00 History Acetaminophen/Codeine [Tylenol 1 tab PO Q6H PRN #15 tab 02/27/20 11/28/20 10/22/20 09:00 Rx /Codeine # 3 tab] Active Medications: Generic Name Dose Route Start Last Admin Trade Name Freq PRN Reason Stop Dose Admin Acetaminophen 650 mg 11/27/20 22:41 Acetaminophen 325 Mg Tab PO Q4H PRN Pain MILD(1-3)/Fever >100.5/BARNETT Sodium Chloride 1,000 mls @ 125 mls/hr 11/28/20 06:45 11/28/20 08:40 Nacl 0.9% 1000 Ml IV 125 mls/hr DIRECT JANE Administration Insulin Human Lispro 0 unit 11/28/20 07:00 11/29/20 05:53 Insulin Lispro 100 Unit/Ml SUB-Q 3 unit Q6HR JANE Administration Protocol Metoclopramide HCl 5 mg 11/27/20 22:41 Metoclopramide 10 Mg/2 Ml Inj IV Q6H PRN Nausea And Vomiting Morphine Sulfate 2 mg 11/27/20 22:41 Morphine 2 Mg/1 Ml Inj IV Q4H PRN Pain, Moderate (4-6) Multivitamins 1 each 11/28/20 11:00 11/29/20 09:09 Multivitamins ,Therapeutic Tab PO 1 each QDAY JANE Administration Ondansetron HCl 4 mg 11/27/20 22:41 Ondansetron 4 Mg/2 Ml Inj IV Q8H PRN Nausea And Vomiting Pantoprazole Sodium 40 mg 11/28/20 22:00 11/29/20 09:08 Pantoprazole 40 Mg Inj IV 40 mg BID JANE Administration Promethazine HCl 25 mg 11/27/20 22:41 Promethazine 25 Mg Rect Supp [place] Q6H PRN N/V IF NPO AND NO IV ACCESS Sodium Chloride 10 ml 11/28/20 10:00 11/29/20 09:12 Sodium Chloride 0.9% 10 Ml Flush Syringe IV 10 ml BID JANE Administration Sodium Chloride 10 ml 11/27/20 22:41 Sodium Chloride 0.9% 10 Ml Flush Syringe IV PRN PRN LINE FLUSH
--- NOTE | 2020-11-29 18:30 | Gastroenterology Progress Note ---
Assessment and Plan 1. DU with hemorrhage - EGD otherwise negative 11/28 - Clinical resolution with improving BUN/hct and no signs of further blood loss. - Will advance to regular diet and PO protonix - OK to discharge home tomorrow; would hold daily ASA for another 7 days given severity of anemia. - Will sign off; please call if needed. Subjective Date of service: 11/29/20 Principal diagnosis: DU with hemorrhage Interval history: The patient has no N/V/abdominal pain. His dark stools have resolved. Objective - Constitutional Vitals: Temp Pulse Resp BP Pulse Ox 98.0 F 87 16 117/57 99 11/29/20 15:55 11/29/20 15:55 11/29/20 15:55 11/29/20 15:55 11/29/20 15:55 General appearance: no acute distress - EENT Eyes: PERRL ENT: hearing intact - Respiratory Respiratory effort: normal Respiratory: bilateral: CTA - Cardiovascular Rhythm: regular Heart Sounds: Present: S1 & S2 - Gastrointestinal General gastrointestinal: Present: soft, non-tender, non-distended - Labs CBC & Chem 7: 11/29/20 04:12 11/29/20 04:12 Labs: Laboratory Results - last 24 hr 11/28/20 11/28/20 11/29/20 19:42 23:51 04:12 WBC 6.6 RBC 2.52 L Hgb 7.4 L 8.0 L Hct 22.5 L 23.6 L MCV 94 MCH 32 MCHC 34 RDW 15.1 Plt Count 229 Lymph % (Auto) 14.3 Tucker % (Auto) 7.9 H Eos % (Auto) 6.8 H Baso % (Auto) 0.8 Lymph # (Auto) 0.9 L Tucker # (Auto) 0.5 Eos # (Auto) 0.4 Baso # (Auto) 0.1 Seg Neutrophils % 70.2 H Seg Neutrophils # 4.7 Sodium Potassium Chloride Carbon Dioxide Anion Gap BUN Creatinine Estimated GFR BUN/Creatinine Ratio Glucose POC Glucose 274 H Calcium 11/29/20 11/29/20 11/29/20 04:12 05:30 11:33 WBC RBC Hgb Hct MCV MCH MCHC RDW Plt Count Lymph % (Auto) Tucker % (Auto) Eos % (Auto) Baso % (Auto) Lymph # (Auto) Tucker # (Auto) Eos # (Auto) Baso # (Auto) Seg Neutrophils % Seg Neutrophils # Sodium 147 H Potassium 3.7 D Chloride 115.1 H Carbon Dioxide 23 Anion Gap 13 BUN 30 H Creatinine 0.9 Estimated GFR > 60 BUN/Creatinine Ratio 33 Glucose 112 H POC Glucose 156 H 364 H Calcium 8.6
--- NOTE | 2020-11-29 18:48 | Electrocardiograph Report ---
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
[2020-11-29] MEDS: INSULIN GLARGINE 100 UNITS/ML SUB-Q SCH (22:37)
[2020-11-30 05:54] LABS: Basophils % (Auto) 0.6 % (0.0-1.8); Eosinophils # (Auto) 0.4 K/mm3 (0.0-0.4); Eosinophils % (Auto) 7.5 % (0.0-4.3); Hematocrit 22.9 % (35.5-45.6); Hemoglobin 7.6 gm/dl (11.8-15.2); Lymphocytes # (Auto) 0.9 K/mm3 (1.2-5.4); Lymphocytes % (Auto) 15.1 % (13.4-35.0); Mean Corpuscular HGB Conc 33 % (32-34); Mean Corpuscular Volume 94 fl (84-94); Monocytes # (Auto) 0.5 K/mm3 (0.0-0.8); Monocytes % (Auto) 8.3 % (0.0-7.3); Platelet Count 217 K/mm3 (140-440); Red Blood Count 2.43 M/mm3 (3.65-5.03); Red Cell Distribution Width 15.1 % (13.2-15.2)
[2020-11-30 06:04] LABS: BUN/Creatinine Ratio 19; Blood Urea Nitrogen 15 mg/dL (9-20); Calcium 8.6 mg/dL (8.4-10.2); Hemolysis Index 0
[2020-11-30] MEDS: INSULIN LISPRO 100 UNIT/ML SUB-Q SCH ×4 (08:17→22:32)
[2020-11-30] MEDS: PANTOPRAZOLE 40 MG TAB PO SCH (08:17)
--- NOTE | 2020-11-30 10:30 | Progress Note ---
Assessment and Plan Assessment and plan: 61-year-old male with insulin-dependent diabetes, CKD stage III, hyperkalemia, hypertension, prostate cancer and hyperlipidemia admitted with GI bleed, anemia, hyperkalemia, metabolic acidosis, acute kidney injury Acute GI bleed Anemia Hyperkalemia Hyponatremia Hyperglycemia Leukocytosis Metabolic acidosis Acute kidney injury 2/2 vasomotor nephropathy Diabetes mellitus Hyperlipidemia Hypertension -CCM, nephrology, GI consulted, appreciate recommendations -COVID-19 PCR negative -Baseline creatinine 1.4-1.9 per nephrology -S/p Kayexalate, insulin, calcium gluconate, D50, albuterol, 2 L normal saline bolus in the ED -S/p 2 units PRBC -S/p Protonix drip now on PPI twice daily -Renal ultrasound pending -Strict intake and output -Avoid nephrotoxic medications -MIVF per nephrology -Cleared for clear liquid diet per GI -S/p endoscopy with GI on 11/28 which revealed a nonbleeding duodenal ulcer, alysa ritis -Hemoglobin A1c 8.1 -SSI, accucheck ACHS -Trend CBC, BMP GI/DVT prophylaxis: Protonix twice daily, SCDs to bilateral resolved in bed, avoid chemical anticoagulation in setting of recent GI bleed Disposition: ICU, may transfer to floor The high probability of a clinically significant, sudden or life threatening deterioration of the [GI] system(s) required my full and direct attention, inte rvention and personal management. The aggregate critical care time was [35] minutes. This time is in addition to time spent performing reported procedures but includes the following: [x] Data Review and interpretation [x] Patient assessment and monitoring of vital signs [x] Documentation [x] Medication orders and management History Interval history: This is 61-year-old male with insulin-dependent diabetes, CKD stage III, hyperkalemia, hypertension, prostate cancer and hyperlipidemia who found patient to be hypotensive, tachycardic, unable to walk with hyperglycemia and found down after fall. Upon presentation to the emergency department patient was initially obtunded but after IV fluid resuscitation he was verbal. He had melena in the emergency department and reported black tarry stools for the past 3 days. Work-up in the emergency department revealed anemia with a hemoglobin/hematocrit of 5.2/16.1 which improved to 8.5/24.1 after 2 units PRBC, hyperkalemia at 6.3, hyponatremia, elevated blood glucose, metabolic acidosis and elevated BUN/creatinine. Patient was admitted to the hospital service with consults to GI, CCM and nephrology for symptomatic anemia, hyperkalemia, hyponatremia, CKD stage III and hyperglycemia. 11/28: Patient received a EGD today and he has been cleared for clear liquid diet and Protonix has been changed to twice daily dosage. H/H after 2 units PRBC improved to 8.5/24. Patient is had slight hyperkalemia today and was given Kionex. We will continue to trend CBC and BMP. 11/29/2020; patient is on clear liquid diet. Hemoglobin this morning was 8. Continue with Protonix. GI consult appreciated. Will advance diet. 11/30/2020; hemoglobin this morning is 7.7, diet is advanced to regular diet. Con tinue with Protonix. She is constipated and will give him MiraLAX. Patient can be discharged tomorrow if stable. History Interval history: Patient was seen and evaluated this morning Patient is complaining constipation Patient wants to stay one more day, he wants to be discharged once he has bowel movement Hospitalist Physical - Physical exam Narrative exam: Not in cardiopulmonary distress. The patient appeared well nourished and normally developed. Vital signs as documented. Head exam is unremarkable. No scleral icterus . Neck is without jugular venous distension, thyromegaly, or carotid bruits. Lungs are clear to auscultation. Cardiac exam reveals regular rate and Rhythm. Abdominal exam reveals normal bowel sounds, nontender, no organomegaly. Extremities are nonedematous and both femoral and pedal pulses are normal. ACTIVE DIRECTORY ENGINEER: Alert and oriented 3. No focal weakness. - Constitutional Vitals: Temp Pulse Resp BP Pulse Ox 98.5 F 89 16 100/39 97 11/30/20 04:34 11/30/20 04:34 11/30/20 04:34 11/30/20 04:34 11/30/20 04:34 General appearance: Present: no acute distress, well-nourished HEART Score - HEART Score Age: > 65 Risk factors: 1-2 risk factors Troponin: Troponin T < 0.010 ng/mL (0.00-0.029) 11/27/20 13:06 - Critical Actions Critical Actions: 4-6 pts:12-16.6% risk of adverse cardiac event. Should be admitted Results - Labs CBC & Chem 7: 11/30/20 04:24 11/30/20 04:24 Labs: Laboratory Last Values WBC 5.9 K/mm3 (4.5-11.0) 11/30/20 04:24 RBC 2.43 M/mm3 (3.65-5.03) L 11/30/20 04:24 Hgb 7.6 gm/dl (11.8-15.2) L 11/30/20 04:24 Hct 22.9 % (35.5-45.6) L 11/30/20 04:24 MCV 94 fl (84-94) 11/30/20 04:24 MCH 31 pg (28-32) 11/30/20 04:24 MCHC 33 % (32-34) 11/30/20 04:24 RDW 15.1 % (13.2-15.2) 11/30/20 04:24 Plt Count 217 K/mm3 (140-440) 11/30/20 04:24 Lymph % (Auto) 15.1 % (13.4-35.0) 11/30/20 04:24 [place] % (Auto) 8.3 % (0.0-7.3) H 11/30/20 04:24 Eos % (Auto) 7.5 % (0.0-4.3) H 11/30/20 04:24 Baso % (Auto) 0.6 % (0.0-1.8) 11/30/20 04:24 Lymph # (Auto) 0.9 K/mm3 (1.2-5.4) L 11/30/20 04:24 [place] # (Auto) 0.5 K/mm3 (0.0-0.8) 11/30/20 04:24 Eos # (Auto) 0.4 K/mm3 (0.0-0.4) 11/30/20 04:24 Baso # (Auto) 0.0 K/mm3 (0.0-0.1) 11/30/20 04:24 Seg Neutrophils % 68.5 % (40.0-70.0) 11/30/20 04:24 Seg Neutrophils # 4.0 K/mm3 (1.8-7.7) 11/30/20 04:24 PT 15.1 Sec. (12.2-14.9) H 11/27/20 13:47 INR 1.19 (0.87-1.13) H 11/27/20 13:47 APTT 28.6 Sec. (24.2-36.6) 11/27/20 13:47 Sodium 139 mmol/L (137-145) D 11/30/20 04:24 Potassium 4.0 mmol/L (3.6-5.0) 11/30/20 04:24 Chloride 106.3 mmol/L (98-107) 11/30/20 04:24 Carbon Dioxide 24 mmol/L (22-30) 11/30/20 04:24 Anion Gap 13 mmol/L 11/30/20 04:24 BUN 15 mg/dL (9-20) 11/30/20 04:24 Creatinine 0.8 mg/dL (0.8-1.3) 11/30/20 04:24 Estimated GFR > 60 ml/min 11/30/20 04:24 BUN/Creatinine Ratio 19 % 11/30/20 04:24 Glucose 251 mg/dL (75-100) H 11/30/20 04:24 POC Glucose 272 mg/dL (70-105) H 11/30/20 07:20 Hemoglobin A1c 8.1 % (4-6) H 11/28/20 07:10 Ketones Quantitative Negative (Negative) 11/27/20 13:06 Calcium 8.6 mg/dL (8.4-10.2) 11/30/20 04:24 Phosphorus 3.40 mg/dL (2.5-4.5) 11/28/20 07:10 Total Bilirubin 0.20 mg/dL (0.1-1.2) 11/27/20 13:06 Direct Bilirubin < 0.2 mg/dL (0-0.2) 11/27/20 13:06 Indirect Bilirubin 0.0 mg/dL 11/27/20 13:06 AST 15 units/L (5-40) 11/27/20 13:06 ALT 15 units/L (7-56) 11/27/20 13:06 Alkaline Phosphatase 42 units/L (35-129) 11/27/20 13:06 Troponin T < 0.010 ng/mL (0.00-0.029) 11/27/20 13:06 Total Protein 4.9 g/dL (6.3-8.2) L 11/27/20 13:06 Albumin 2.7 g/dL (3.9-5) L 11/27/20 13:06 Albumin/Globulin Ratio 1.2 % 11/27/20 13:06 Urine Color Straw (Yellow) 11/27/20 11:52 Urine Turbidity Clear (Clear) 11/27/20 11:52 Urine pH 5.0 (5.0-7.0) 11/27/20 11:52 Ur Specific [place] 1.011 (1.003-1.030) 11/27/20 11:52 Urine Protein <15 mg/dl mg/dL (Negative) 11/27/20 11:52 Urine Glucose (UA) >=500 mg/dL (Negative) 11/27/20 11:52 Urine Ketones 20 mg/dL (Negative) 11/27/20 11:52 Urine Blood Sm (Negative) 11/27/20 11:52 Urine Nitrite Neg (Negative) 11/27/20 11:52 Urine Bilirubin Neg (Negative) 11/27/20 11:52 Urine Urobilinogen < 2.0 mg/dL (<2.0) 11/27/20 11:52 Ur Leukocyte Esterase Neg (Negative) 11/27/20 11:52 Urine WBC (Auto) < 1.0 /HPF (0.0-6.0) 11/27/20 11:52 Urine RBC (Auto) 1.0 /HPF (0.0-6.0) 11/27/20 11:52 U Epithel Cells (Auto) < 1.0 /HPF (0-13.0) 11/27/20 11:52 Urine Mucus Few /HPF 11/27/20 11:52 Urine Eosinophils None seen (None Seen) 11/27/20 20:42 Urine Creatinine 21.7 mg/dL (0.1-20.0) H 11/27/20 20:42 Protein/Creatinin Ratio 0.78 11/27/20 20:42 Urine Sodium 57 mmol/L 11/27/20 20:42 Urine Total Protein 17 mg/dL (5-11.8) H 11/27/20 20:42 Coronavirus (PCR) Negative (Negative) 11/28/20 09:55 Blood Type B POSITIVE 11/27/20 13:10 Antibody Screen Negative 11/27/20 13:10 Crossmatch See Detail 11/27/20 13:10 Powell/IV: Voiding Method Urinal Active Medications - Current Medications Current Medications: Generic Name Dose Route Start Last Admin Trade Name Freq PRN Reason Stop Dose Admin Acetaminophen 650 mg 11/27/20 22:41 Acetaminophen 325 Mg Tab PO Q4H PRN Pain MILD(1-3)/Fever >100.5/BARNETT Sodium Chloride 1,000 mls @ 125 mls/hr 11/28/20 06:45 11/28/20 08:40 Nacl 0.9% 1000 Ml IV 125 mls/hr DIRECT JANE Administration Insulin Glargine 10 units 11/29/20 22:00 11/29/20 22:37 Insulin Glargine 100 Units/Ml SUB-Q Not Given QHS [facility] Insulin Human Lispro 0 unit 11/29/20 22:00 11/30/20 08:17 Insulin Lispro 100 Unit/Ml SUB-Q 6 unit ACHS JANE Administration Protocol Metoclopramide HCl 5 mg 11/27/20 22:41 Metoclopramide 10 Mg/2 Ml Inj IV Q6H PRN Nausea And Vomiting Morphine Sulfate 2 mg 11/27/20 22:41 Morphine 2 Mg/1 Ml Inj IV Q4H PRN Pain, Moderate (4-6) Multivitamins 1 each 11/28/20 11:00 11/29/20 09:09 Multivitamins ,Therapeutic Tab PO 1 each QDAY JANE Administration Ondansetron HCl 4 mg 11/27/20 22:41 Ondansetron 4 Mg/2 Ml Inj IV Q8H PRN Nausea And Vomiting Pantoprazole Sodium 40 mg 11/30/20 07:30 11/30/20 08:17 Pantoprazole 40 Mg Tab PO 40 mg QDAC JANE Administration Polyethylene Glycol 17 gm 11/30/20 11:00 Polyethylene Glycol 3350 17 Gm Powder PO QDAY JANE Promethazine HCl 25 mg 11/27/20 22:41 Promethazine 25 Mg Rect Supp DC Q6H PRN N/V IF NPO AND NO IV ACCESS Sodium Chloride 10 ml 11/28/20 10:00 11/29/20 23:23 Sodium Chloride 0.9% 10 Ml Flush Syringe IV 10 ml BID JANE Administration Sodium Chloride 10 ml 11/27/20 22:41 Sodium Chloride 0.9% 10 Ml Flush Syringe IV PRN PRN LINE FLUSH
[2020-11-30] MEDS: MULTIVITAMINS ,THERAPEUTIC TAB PO SCH (12:01)
[2020-11-30] MEDS: POLYETHYLENE GLYCOL 3350 17 GM POWDER PO SCH (12:03)
[2020-11-30] MEDS: INSULIN GLARGINE 100 UNITS/ML SUB-Q SCH (22:32)
[2020-12-01 06:52] LABS: Hematocrit 23.8 % (35.5-45.6); Mean Corpuscular HGB Conc 34 % (32-34); Mean Corpuscular Volume 96 fl (84-94); Platelet Count 238 K/mm3 (140-440); Red Blood Count 2.49 M/mm3 (3.65-5.03); Red Cell Distribution Width 15.3 % (13.2-15.2)
[2020-12-01] MEDS: INSULIN LISPRO 100 UNIT/ML SUB-Q SCH ×3 (08:29→17:23)
[2020-12-01] MEDS: PANTOPRAZOLE 40 MG TAB PO SCH (08:29)
[2020-12-01 08:57] LABS: Total Cells Counted 100
[2020-12-01 08:59] LABS: Macrocytosis Rare; Platelet Estimate Consistent w Auto; Poikilocytosis Rare
[2020-12-01] MEDS: MULTIVITAMINS ,THERAPEUTIC TAB PO SCH (09:26)
[2020-12-01] MEDS: POLYETHYLENE GLYCOL 3350 17 GM POWDER PO SCH (09:26)
--- NOTE | 2020-12-01 10:39 | Discharge Summary ---
Providers - Providers Date of Admission: 11/27/20 15:46 Date of discharge: 12/01/20 Attending physician: NII SHANKAR MD 11/27/20 14:15 Consult to Physician [CONS] Stat Comment: Consulting Provider: MARCY EDGAR Physician Instructions: Reason For Exam: GI bleed 11/27/20 15:39 Consult to Physician [CONS] Stat Comment: Consulting Provider: LASHELL MAYBERRY Physician Instructions: Reason For Exam: ARF, hyperkalemia 11/29/20 11:54 Physical Therapy Evaluation and Treat [CONS] Routine Comment: Reason For Exam: deconditioning Primary care physician: MAPPING TECHNICIAN Hospitalization Reason for admission: Severe anemia due to GI bleed, HERB, hypotension, uncontrolled diabetes Condition: Stable Hospital course: History of present illness: 61-year-old male with history of insulin-dependent diabetes, hypertension, prostate cancer and hyperlipidemia was called in for a welfare check by neighbor. When the EMS arrived her house was in an back condition and patient was hypotensive tachycardic and unable to walk. Accu-Cheks are in range of 500. Patient says that he had some black tarry stools for the last 3 days. Feels very weak and unable to walk. No fever. Compliance with medications not known. Lives alone. Hospital course 61-year-old male with insulin-dependent diabetes, CKD stage III, hyperkalemia, hypertension, prostate cancer and hyperlipidemia admitted with GI bleed, anemia, hyperkalemia, metabolic acidosis, acute kidney injury Acute GI bleed Anemia Hyperkalemia Hyponatremia Hyperglycemia Leukocytosis Metabolic acidosis Acute kidney injury 2/2 vasomotor nephropathy Diabetes mellitus Hyperlipidemia Hypertension -CCM, nephrology, GI consulted, appreciate recommendations -COVID-19 PCR negative -Baseline creatinine 1.4-1.9 per nephrology -S/p Kayexalate, insulin, calcium gluconate, D50, albuterol, 2 L normal saline bolus in the ED -S/p 2 units PRBC -S/p Protonix drip now on PPI twice daily -Renal ultrasound pending -Strict intake and output -Avoid nephrotoxic medications -MIVF per nephrology -Cleared for clear liquid diet per GI -S/p endoscopy with GI on 11/28 which revealed a nonbleeding duodenal ulcer, gastritis -Hemoglobin A1c 8.1 -SSI, accucheck ACHS -Trend CBC, BMP GI/DVT prophylaxis: Protonix twice daily, SCDs to bilateral resolved in bed, avoid chemical anticoagulation in setting of recent GI bleed Disposition: ICU, may transfer to floor The high probability of a clinically significant, sudden or life threatening deterioration of the [GI] system(s) required my full and direct attention, intervention and personal management. The aggregate critical care time was [35] minutes. This time is in addition to time spent performing reported procedures but includes the following: [x] Data Review and interpretation [x] Patient assessment and monitoring of vital signs [x] Documentation [x] Medication orders and management History Interval history: This is 61-year-old male with insulin-dependent diabetes, CKD stage III, hyperkalemia, hypertension, prostate cancer and hyperlipidemia who found patient to be hypotensive, tachycardic, unable to walk with hyperglycemia and found down after fall. Upon presentation to the emergency department patient was initially obtunded but after IV fluid resuscitation he was verbal. He had melena in the emergency department and reported black tarry stools for the past 3 days. Work-up in the emergency department revealed anemia with a hemoglobin/hematocrit of 5.2/16.1 which improved to 8.5/24.1 after 2 units PRBC, hyperkalemia at 6.3, hyponatremia, elevated blood glucose, metabolic acidosis and elevated BUN/creatinine. Patient was admitted to the hospital service with consults to GI, CCM and nephrology for symptomatic anemia, hyperkalemia, hyponatremia, CKD stage III and hyperglycemia. 11/28: Patient received a EGD today and he has been cleared for clear liquid diet and Protonix has been changed to twice daily dosage. H/H after 2 units PRBC improved to 8.5/24. Patient is had slight hyperkalemia today and was given Kionex. We will continue to trend CBC and BMP. 11/29/2020; patient is on clear liquid diet. Hemoglobin this morning was 8. Continue with Protonix. GI consult appreciated. Will advance diet. 11/30/2020; hemoglobin this morning is 7.7, diet is advanced to regular diet. Continue with Protonix. She is constipated and will give him MiraLAX. Patient can be discharged tomorrow if stable. 12/01/2020; patient's hemoglobin this morning was 8 and stable, patient was given MiraLAX and Dulcolax yesterday and he has bowel movement which was dark this morning but there was no sp blood. Patient tolerated diet well. Patient was seen by GI and recommend to continue with Protonix. Make an appointment to see GI as an outpatient in 6 weeks. I put the patient on Protonix, sucralfate. Patient was evaluated by PT OT and recommend home health. Home health was arranged and transportation was arranged. I discussed with case management and discharged home. Patient was hemodynamically stable at the time of discharge. Patient is scheduled to see primary care as an outpatient. Patient's questions and concerns were addressed at the bedside. Disposition: [id number] HOME UNDER HOME [facility] Final Discharge Diagnosis (Prints w/discharge instructions): GI bleed. severe anemia Time spent for discharge: 35 minutes - Discharge Diagnoses (1) Acute renal failure Status: Acute (2) Anemia Status: Acute (3) GI bleed Status: Acute (4) Hyperkalemia Status: Acute (5) Hypotension due to blood loss Status: Acute (6) Uncontrolled diabetes mellitus Status: Chronic Qualifiers: Diabetes mellitus type: type 2 Core Measure Documentation - Palliative Care Palliative Care/ Comfort Measures: Not Applicable - Core Measures Any of the following diagnoses?: none Exam - Physical Exam Narrative exam: Not in cardiopulmonary distress. The patient appeared well nourished and normally developed. Vital signs as documented. Head exam is unremarkable. No scleral icterus . Neck is without jugular venous distension, thyromegaly, or carotid bruits. Lungs are clear to auscultation. Cardiac exam reveals regular rate and Rhythm. Abdominal exam reveals normal bowel sounds, nontender, no organomegaly. Extremities are nonedematous and both femoral and pedal pulses are normal. TRANSMISSION AND PROTECTION ENGINEER: Alert and oriented 3. No focal weakness. - Constitutional Vitals: Temp Pulse Resp BP Pulse Ox 97.9 F 91 H 18 128/57 98 12/01/20 08:09 12/01/20 07:08 12/01/20 04:35 12/01/20 07:08 12/01/20 07:08 Plan Activity: no restrictions Weight Bearing Status: Full Weight Bearing Diet: diabetic Follow up with: PRIMARY MD GAGAN [Primary Care Provider] - 3-5 Days DOROTHEA VARNER MD [Staff Physician] - 7 Days MARCY EDGAR MD [Staff Physician] - 6 Weeks Prescriptions: Sucralfate [Carafate] 1 gm PO Q6HR #120 tablet polyethylene glycoL 3350 [Miralax 3350] 17 gm PO QDAY #30 powd.pack Pantoprazole [Protonix TAB] 40 mg PO QDAC #30 tablet
[2020-12-01 20:51] VITALS: BP 95/44
== END 2020-12-01 22:00 | disposition home health service (06) | DRG 377 ==
LOC: ED 10:41 → CC1 15:46 → 4A 11-28 18:30
PROVIDERS: ADMIT Internal Medicine; ATTEND Internal Medicine
PROC: 30233N1 Transfusion of Nonautologous Red Blood Cells into Peripheral Vein, Percutaneous Approach (ICD-10-PCS; principal; 2020-11-27)
PROC: 0DB68ZX Excision of Stomach, Via Natural or Artificial Opening Endoscopic, Diagnostic (ICD-10-PCS; 2020-11-28)
DX: K26.4 Chronic or unspecified duodenal ulcer with hemorrhage (principal); N17.0 Acute kidney failure with tubular necrosis; E87.1 Hypo-osmolality and hyponatremia; E87.2 Acidosis; E46 Unspecified protein-calorie malnutrition; I95.89 Other hypotension; D64.9 Anemia, unspecified; E87.5 Hyperkalemia; Z20.822 Contact with and (suspected) exposure to COVID-19; Z85.46 Personal history of malignant neoplasm of prostate; Z79.4 Long term (current) use of insulin; Z79.899 Other long term (current) drug therapy; Z79.82 Long term (current) use of aspirin; Z87.891 Personal history of nicotine dependence; E11.65 Type 2 diabetes mellitus with hyperglycemia; I12.9 Hypertensive chronic kidney disease with stage 1 through stage 4 chronic kidney disease, or unspecified chronic kidney disease; E11.22 Type 2 diabetes mellitus with diabetic chronic kidney disease; N18.30 Chronic kidney disease, stage 3 unspecified; K29.80 Duodenitis without bleeding; K29.70 Gastritis, unspecified, without bleeding
CPT/HCPCS: 36415; 70450; 71045; 72125; 76770; 80048; 80076; 81001; 82010; 82570; 82962; 83036; 84100; 84132; 84156; 84300; 84484; 85007; 85014; 85018; 85025; 85610; 85730; 86850; 86900; 86901; 86920; 88305; 88342; 89050; 93005; 96374; 96375; G0378; C9113; J0610; J1815; J2370; J2405; J2704; J3010; J3490; J7030; P9016; U0003

== ENCOUNTER 2021-01-21 08:42 | Outpatient (CLI) | payer MEDICARE ==
--- NOTE | 2021-01-21 14:51 | Nuclear Medicine Report ---
NM bone scan whole body INDICATION / CLINICAL INFORMATION: MALIGNANT NEOPLASM OF PROSTATE. TECHNIQUE: Dose / Agent / Route: 25.8 mCi technetium MDP, IV. COMPARISON: 06/25/2020 FINDINGS: Increased uptake is again demonstrated in the region of the right maxillary sinus, most suggestive of chronic sinusitis. This is confirmed by the appearance of previous head CT dated 11/27/2020. Increased uptake in both acromioclavicular joints and in several areas of the thoracic and lumbar spi ne is consistent with degenerative change. I see no evidence of skeletal metastasis. IMPRESSION: 1. Negative for skeletal metastasis. Signer Name: Anthony Stanley MD Signed: 01/21/2021 2:46 PM Workstation Name: [id number]
== END 2021-01-21 08:43 | disposition home or self-care (01) ==
LOC: NM 08:42
PROVIDERS: ATTEND Urology
DX: C61 Malignant neoplasm of prostate (principal)
CPT/HCPCS: 78306; A9503

== ENCOUNTER 2022-01-04 15:13 | Emergency (ER) | payer MEDICARE ==
[2022-01-04 16:01] VITALS: BP 145/59
[2022-01-04 17:28] LABS: Basophils # (Auto) 0.1 K/mm3 (0.0-0.1); Basophils % (Auto) 1.1 % (0.0-1.8); Eosinophils # (Auto) 0.5 K/mm3 (0.0-0.4); Hematocrit 38.8 % (35.5-45.6); Hemoglobin 12.9 gm/dl (11.8-15.2); Lymphocytes # (Auto) 1.1 K/mm3 (1.2-5.4); Lymphocytes % (Auto) 20.2 % (13.4-35.0); Mean Corpuscular HGB Conc 33 % (32-34); Mean Corpuscular Volume 95 fl (84-94); Monocytes # (Auto) 0.5 K/mm3 (0.0-0.8); Monocytes % (Auto) 9.6 % (0.0-7.3); Platelet Count 227 K/mm3 (140-440); Red Cell Distribution Width 13.3 % (13.2-15.2)
[2022-01-04 17:44] LABS: BUN/Creatinine Ratio 23; Blood Urea Nitrogen 25 mg/dL (9-20); Calcium 9.8 mg/dL (8.4-10.2); Hemolysis Index 10
== END 2022-01-05 19:00 | disposition left against medical advice (07) ==
LOC: ED 15:13
DX: E11.9 Type 2 diabetes mellitus without complications (principal); Z53.21 Procedure and treatment not carried out due to patient leaving prior to being seen by health care provider
CPT/HCPCS: 36415; 80048; 82962; 85025